=== PATIENT | female | born 1965 | race Caucasian/White ===

== ENCOUNTER 2020-05-30 14:51 | Outpatient (REF) | payer OTHER, SELFPAY | END 2020-05-30 14:52 | disposition home or self-care (01) | LOC: HO.LAB 14:51 | PROVIDERS: Visit Provider Internal Medicine | DX: Z20.828 Contact with and (suspected) exposure to other viral communicable diseases (principal) | CPT/HCPCS: C9803; U0003 ==

== ENCOUNTER 2020-06-22 08:20 | Outpatient (REF) | payer OTHER, SELFPAY | END 2020-06-22 08:21 | disposition home or self-care (01) | LOC: HO.LAB 08:20 | PROVIDERS: Visit Provider Internal Medicine | DX: Z20.822 Contact with and (suspected) exposure to COVID-19 (principal) | CPT/HCPCS: 36415; C9803; U0003 ==

== ENCOUNTER 2020-07-17 09:38 | Outpatient (REF) | payer OTHER, SELFPAY | END 2020-07-17 09:39 | disposition home or self-care (01) | LOC: HO.LAB 09:38 | PROVIDERS: Visit Provider Internal Medicine | DX: Z20.822 Contact with and (suspected) exposure to COVID-19 (principal) | CPT/HCPCS: 36415; C9803; U0003; U0005 ==

== ENCOUNTER 2021-02-08 08:23 | Outpatient (REF) | payer OTHER, SELFPAY ==
--- NOTE | ~2021-02-08 | MM_ITS ---
EXAMINATION: MM SCREENING DIGITAL BREAST TOMOSYNTHESIS, BILATERAL CLINICAL INFORMATION: Screening. Asymptomatic. The lifetime risk of breast cancer based on the Tyrer-Cuzick Model is 4%. COMPARISON: Outside mammography: 05/16/2019, 04/29/2019 ([facility]). TECHNIQUE: Digital breast tomosynthesis is performed in both the craniocaudal and mediolateral oblique views along with computer-aided detection (CAD). Synthesized 2D images are generated from the tomosynthesis. FINDINGS: The breasts are almost entirely fatty (ACR BI-RADS breast composition Category a). Background stromal markings are stable. There is no interval mass or architectural abnormality or developing density. Again, there are some vascular calcifications. The axilla and skin contours are unremarkable.No significant changes from prior outside exams. MM/MM tomosynthesis screening BI IMPRESSION: No mammographic evidence of malignancy. ASSESSMENT: BI-RADS 2: Benign RECOMMENDATION: Routine annual mammography screening. This patient's information was entered into a reminder system with a target due date for their next mammogram.
== END 2021-02-08 08:24 | disposition home or self-care (01) ==
LOC: HO.MAMMO 08:23
PROVIDERS: PCP Internal Medicine; Visit Provider Internal Medicine
DX: Z12.31 Encounter for screening mammogram for malignant neoplasm of breast (principal)
CPT/HCPCS: 77063; 77067

== ENCOUNTER 2021-03-15 09:04 | Outpatient (REF) | payer OTHER, SELFPAY ==
[2021-03-15 09:30] LABS: MANUAL DIFF FLAG NO
[2021-03-15 09:58] LABS: Basophils Percent Auto 0.5 % (0-2); Eosinophils Absolute Auto 0.2 X10*3/uL (0.0-0.4); Eosinophils Percent Auto 2.6 % (0-4); Hematocrit 40.1 % (37-47); Imm Gran Abs Auto 0.01 X10*3/uL (0.00-0.03); Imm Gran Pct Auto 0.2 % (0.0-0.4); Lymphocytes Absolute Auto 1.6 X10*3/uL (1.2-4.9); Lymphocytes Percent Auto 28.2 % (20-40); Mean Corpuscular HGB Conc 32.4 g/dl (31.0-35.0); Mean Corpuscular Hemoglobin 29.3 pg (27.0-33.0); Mean Corpuscular Volume 90.5 fL (80-98); Mean Platelet Volume 9.2 fL (9.4-12.3); Monocytes Absolute Auto 0.5 X10*3/uL (0.1-1.2); Monocytes Percent Auto 8.1 % (2-11); Neutrophils Absolute Auto 3.4 X10*3/uL (2.0-8.3); Neutrophils Percent Auto 60.4 % (45-73); Platelet Count 319 X10*3/uL (160-400); Red Blood Count 4.43 X10*6/uL (4.20-5.50); White Blood Count 5.7 X10*3/uL (4.8-10.8)
[2021-03-15 10:19] LABS: Alanine Aminotransferase 18 U/L (0-31); Albumin Level 4.3 g/dL (3.5-5.0); Alkaline Phosphatase 104 U/L (39-117); Anion Gap 13 (12-20); Aspartate Amino Transferase 16 U/L (5-31); Bilirubin Total 0.2 mg/dL (0.0-1.0); Blood Urea Nitrogen 15 mg/dL (9-16); Calcium 9.7 mg/dL (8.4-10.2); Carbon Dioxide 25 mmol/L (22-29); Chloride 107 mmol/L (96-108); Cholesterol 221 mg/dL; Estimated Glomerular Filt Rate > 60; Glucose Fasting 100 mg/dL (60-99); HDL Cholesterol 44 mg/dL; LDL Cholesterol Calculated 127 mg/dl; Potassium 4.3 mmol/L (3.3-5.1); Sodium 141 mmol/L (135-145); Total Protein 7.4 g/dL (6.5-8.0); Triglycerides 253 mg/dL
[2021-03-15 10:44] LABS: Thyroid Stimulating Hormone 3.75 uIU/mL (0.32-4.0)
[2021-03-18 21:56] LABS: Thyroglobulin Antibodies <1 IU/mL (< or = 1); Thyroid Peroxidase Antibodies 3 IU/mL (<9)
== END 2021-03-15 09:05 | disposition home or self-care (01) ==
LOC: HO.LAB 09:04
PROVIDERS: PCP Internal Medicine; Visit Provider Internal Medicine
DX: D64.9 Anemia, unspecified (principal); M06.9 Rheumatoid arthritis, unspecified; E66.9 Obesity, unspecified; E03.9 Hypothyroidism, unspecified
CPT/HCPCS: 36415; 80053; 80061; 84443; 85025; 86376; 86800

== ENCOUNTER 2021-07-31 07:57 | Outpatient (REF) | payer OTHER, SELFPAY ==
[2021-07-31 09:09] LABS: Alanine Aminotransferase 18 U/L (0-31); Albumin Level 3.9 g/dL (3.5-5.0); Alkaline Phosphatase 95 U/L (39-117); Anion Gap 12 (12-20); Aspartate Amino Transferase 19 U/L (5-31); Bilirubin Total 0.4 mg/dL (0.0-1.0); Blood Urea Nitrogen 9 mg/dL (9-16); Calcium 9.7 mg/dL (8.4-10.2); Carbon Dioxide 29 mmol/L (22-29); Chloride 103 mmol/L (96-108); Cholesterol 228 mg/dL; Estimated Glomerular Filt Rate > 60; Glucose Fasting 94 mg/dL (60-99); HDL Cholesterol 45 mg/dL; LDL Cholesterol Calculated 121 mg/dl; Potassium 4.9 mmol/L (3.3-5.1); Sodium 139 mmol/L (135-145); Triglycerides 310 mg/dL
[2021-07-31 09:21] LABS: Thyroid Stimulating Hormone 2.75 uIU/mL (0.32-4.0)
[2021-08-04 15:17] LABS: Vitamin D 25-OH, D2 <4 ng/mL; Vitamin D 25-OH, D3 15 ng/mL; Vitamin D 25-OH, Total 15 ng/mL (30-100)
== END 2021-07-31 07:58 | disposition home or self-care (01) ==
LOC: HO.LAB 07:57
PROVIDERS: PCP Nurse Practitioner Family; Visit Provider Internal Medicine
DX: E03.9 Hypothyroidism, unspecified (principal); E55.9 Vitamin D deficiency, unspecified; E78.2 Mixed hyperlipidemia
CPT/HCPCS: 36415; 80053; 80061; 82306; 84443

== ENCOUNTER → 2021-09-27 09:05 | Outpatient (BNVA) | payer OTHER, SELFPAY | PROVIDERS: PCP Internal Medicine; Referring Provider Internal Medicine; Visit Provider Nurse Practitioner | DX: K59.04 Chronic idiopathic constipation (principal) | CPT/HCPCS: 99202 ==

== ENCOUNTER → 2021-10-29 11:22 | Outpatient (BNVA) | payer OTHER, SELFPAY | PROVIDERS: PCP Internal Medicine; Referring Provider Internal Medicine; Visit Provider Nurse Practitioner | DX: K59.04 Chronic idiopathic constipation (principal); Z79.899 Other long term (current) drug therapy | CPT/HCPCS: 99212 ==

== ENCOUNTER → 2021-11-12 09:33 | Outpatient (BNVA) | payer OTHER, SELFPAY | PROVIDERS: PCP Internal Medicine; Visit Provider Nurse Practitioner | DX: K59.04 Chronic idiopathic constipation (principal); K21.9 Gastro-esophageal reflux disease without esophagitis | CPT/HCPCS: 99212 ==

== ENCOUNTER → 2021-11-29 09:14 | Outpatient (BNVA) | payer OTHER, SELFPAY | PROVIDERS: PCP Internal Medicine; Referring Provider Internal Medicine; Visit Provider Nurse Practitioner | DX: K59.04 Chronic idiopathic constipation (principal); K21.9 Gastro-esophageal reflux disease without esophagitis | CPT/HCPCS: 99212 ==

== ENCOUNTER → 2022-01-08 09:28 | Outpatient (BNVA) | payer OTHER, SELFPAY | PROVIDERS: PCP Internal Medicine; Visit Provider Nurse Practitioner | DX: K59.04 Chronic idiopathic constipation (principal); K21.9 Gastro-esophageal reflux disease without esophagitis | CPT/HCPCS: 99212 ==

== ENCOUNTER 2022-02-13 07:57 | Outpatient (REF) | payer OTHER, SELFPAY ==
--- NOTE | ~2022-02-13 | MM_ITS ---
EXAMINATION: MM SCREENING DIGITAL BREAST TOMOSYNTHESIS, BILATERAL CLINICAL INFORMATION: Screening. Asymptomatic. The lifetime risk of breast cancer based on the Tyrer-Cuzick Model is 4%. COMPARISON: Mammography: 02/08/2021; outside mammography 05/16/2019, 04/29/2019 ([facility]) TECHNIQUE: Digital breast tomosynthesis is performed in both the craniocaudal and mediolateral oblique views along with computer-aided detection (CAD). Synthesized 2D images are generated from the tomosynthesis. FINDINGS: The breasts are almost entirely fatty (ACR BI-RADS breast composition Category a). There are no significant masses, abnormal calcifications, or other abnormalities. Parenchymal pattern is similar to prior studies. There is no developing density or architectural abnormality. The axilla and skin contours are unremarkable. No significant changes. MM/MM tomosynthesis screening BI IMPRESSION: No mammographic evidence of malignancy. ASSESSMENT: BI-RADS 1: Negative RECOMMENDATION: Routine annual mammography screening. This patient's information was entered into a reminder system with a target due date for their next mammogram.
== END 2022-02-13 07:58 | disposition home or self-care (01) ==
LOC: HO.MAMMO 07:57
PROVIDERS: PCP Internal Medicine; Visit Provider Internal Medicine
DX: Z12.31 Encounter for screening mammogram for malignant neoplasm of breast (principal)
CPT/HCPCS: 77063; 77067

== ENCOUNTER 2022-05-19 08:13 | Outpatient (REF) | payer OTHER, SELFPAY ==
[2022-05-19 09:19] LABS: Alanine Aminotransferase 15 U/L (0-31); Albumin Level 4.2 g/dL (3.5-5.0); Alkaline Phosphatase 98 U/L (39-117); Anion Gap 12 (12-20); Aspartate Amino Transferase 15 U/L (5-31); Bilirubin Total 0.3 mg/dL (0.0-1.0); Blood Urea Nitrogen 16 mg/dL (9-16); Calcium 9.3 mg/dL (8.4-10.2); Carbon Dioxide 24 mmol/L (22-29); Chloride 109 mmol/L (96-108); Cholesterol 194 mg/dL; Estimated Glomerular Filt Rate > 60; Glucose Fasting 100 mg/dL (60-99); HDL Cholesterol 46 mg/dL; LDL Cholesterol Calculated 122 mg/dl; Sodium 141 mmol/L (135-145); Total Protein 7.1 g/dL (6.5-8.0); Triglycerides 130 mg/dL; Vitamin D 25-OH Total 39.5 ng/mL (>30)
[2022-05-24 13:24] LABS: Vitamin D 25-OH, D2 <4 ng/mL; Vitamin D 25-OH, D3 33 ng/mL; Vitamin D 25-OH, Total 33 ng/mL (30-100)
== END 2022-05-19 08:14 | disposition home or self-care (01) ==
LOC: HO.LAB 08:13
PROVIDERS: PCP Internal Medicine; Visit Provider Internal Medicine
DX: E55.9 Vitamin D deficiency, unspecified (principal); E03.9 Hypothyroidism, unspecified; E78.5 Hyperlipidemia, unspecified; K21.9 Gastro-esophageal reflux disease without esophagitis
CPT/HCPCS: 36415; 80053; 80061; 82306; 84443

== ENCOUNTER 2022-05-23 09:29 | Outpatient (REF) | payer OTHER, SELFPAY ==
--- NOTE | ~2022-05-23 | XR_ITS ---
EXAMINATION: XR WRIST, LEFT CLINICAL INFORMATION: Pain. COMPARISON: None TECHNIQUE: Four views of the left wrist. FINDINGS: No acute fracture or dislocation is evident. Joint spaces are maintained. There is mild spurring about the 1st carpometacarpal joint. There is some mild spurring about the triscaphe joint. There is a sclerotic region within the neck of the scaphoid which may be related to bone island or healed injury. There appears be soft tissue calcification versus artifact about the radial aspect of the distal right radius. XR/XR wrist LT 2V IMPRESSION: Mild degenerative change as described. No acute fracture or dislocation evident.
--- NOTE | ~2022-05-23 | XR_ITS ---
EXAMINATION: XR LUMBOSACRAL SPINE CLINICAL INFORMATION: Low back pain. COMPARISON: None. TECHNIQUE: 3 views of the lumbosacral spine. FINDINGS: There are 5 [id number] lumbar vertebrae. No acute fracture, spondylolisthesis, or spondylolysis is identified. The disc spaces are maintained. Pedicles appear intact. Sacroiliac joints unremarkable. Mildly increased sclerosis about the L5-S1 facet joints seen. XR/XR lumbar spine 2-3V IMPRESSION: No significant lumbar spine abnormality appreciated. No acute fracture, spinal listhesis, or spondylolysis. Mild facet arthropathy L5-S1.
== END 2022-05-23 09:30 | disposition home or self-care (01) ==
LOC: HO.XRAY 09:29
PROVIDERS: PCP Internal Medicine; Visit Provider Internal Medicine
DX: M25.532 Pain in left wrist (principal); M54.50 Low back pain, unspecified
CPT/HCPCS: 72100; 73100

== ENCOUNTER 2022-07-02 11:00 | Outpatient (RCR) | payer OTHER, SELFPAY ==
--- NOTE | 2022-06-18 11:59 | MHC.PT.EP ---
[facility] [place] Office [place] Office [place] Office [address] Dimas Tucker [address] [phone] F: [phone] F: [phone] F: [phone] F: [phone] Physical Therapy Plan of Care Date of Evaluation: Date of Surgery: n/a Diagnosis: low back pain Assessment: Patient is a 56 year old female presenting to PT with complaints of pain in her low back. Pt reports onset of pain began 1-2 years ago due to insidious onset. She presents today with impairments in pain, ROM, core strength, posture, hip strength. Pt's current occupation is none but she cares for her grandson, with baseline physical activities including sitting, lifting, ADLs. 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 Clinical presentation today is most consistent with signs and sx associated with chronic low back pain and pt will benefit from skilled PT to address the following problems and impairments noted upon evaluation: pain, ROM, core strength, posture, hip strength. These problems limit the patient with the following functional activities: sitting, lifting, ADLs. The prescribed treatment plan of care is medically necessary. Co-morbidities of rheumatoid arthritis were identified and taken into considerations of plan of care. Pt was educated on HEP, role of PT, prognosis, POC. Frequency and Duration: The patient will be seen 1 x week x 5 seeks Short Term Goals: Pt will demonstrate improved pain at rest to <3/10 in 3 weeks Pt will demonstrate improved hip strength by 1/3 grade in 3 weeks for improved lumbopelvic stability. Pt will demonstrate ability to perform PPT with min to no cues in 3 weeks for improved core strength. Product Picker Goals: Pt will demonstrate improved Eduardo score by 10% in 5 weeks for improved functional mobility. Pt will demonstrate ability to sit with min to no pain in 5 weeks for return to PLOF. Pt will demonstrate ability to lift with min to no pain in 5 weeks for improved tolerance to ADLs. Treatment Plan: Modalities to reduce pain, spasms and effusion. Manual therapy to restore motion and function. Therapeutic exercise to improve strength and flexibility. Neuromuscular re-education for posture and balance. Therapeutic activities to return to functional activities of daily living. Electronically signed by: Inga Hoff, PT, DPT, ATC Please sign and return to therapist. Thank you for your referral.
--- NOTE | 2022-08-15 08:15 | MHC.PT.DC ---
[facility] [place] Office [place] Office [place] Office [address] [phone] F: [phone] F: [phone] F: [phone] F: [phone] Physical Therapy Discharge Report Diagnosis: low back pain Date of Surgery: n/a Date of Evaluation: 06/18/22 Date of Discharge: 08/15/22 Treatments to Date: 3 Cancellations to Date: 3 No Shows to Date: 1 Discharge Status: Visit Non-compliance Discharge Summary: Pt has not attended PT in >30 days. She also has 3 cancels and a no show since start of care. Pt to be d/c at this time. Electronically signed by: Inga Hoff, PT, DPT, ATC Please sign and return to therapist. Thank you for your referral.
== END 2022-08-15 08:15 | disposition home or self-care (01) ==
LOC: HO.PTCHIC 11:00
PROVIDERS: PCP Internal Medicine; Visit Provider Internal Medicine
DX: M54.50 Low back pain, unspecified (principal)
CPT/HCPCS: 97110; 97140; 97161

== ENCOUNTER → 2022-07-09 08:37 | Outpatient (BNVA) | payer OTHER, SELFPAY | PROVIDERS: PCP Internal Medicine; Visit Provider Nurse Practitioner | DX: K59.04 Chronic idiopathic constipation (principal); K21.9 Gastro-esophageal reflux disease without esophagitis; Z98.890 Other specified postprocedural states | CPT/HCPCS: 99212 ==

== ENCOUNTER 2023-01-21 08:21 | Outpatient (AMB) | payer OTHER, SELFPAY ==
--- NOTE | 2023-01-21 08:23 | MHC.OFFVIS ---
Intake Vital Signs 01/21/23 08:28 Height 4 ft 11 in Weight 154 lb 5.177 oz BMI 31.2 BP 126/75 Blood Pressure Location Lt brachial Position Sitting Pulse 87 Intake Visit Reasons: 6 month follow up Intake Note: Gayle presents in the office as a 6 month follow up.. CC: No concerns today - since last visit she has had a wrist surgery. Allergies polyethylene glycol 3350 [From Colyte] Allergy (Severe, Verified 01/21/23 08:29) redness of skin, itch potassium chloride [From Colyte] Allergy (Severe, Verified 01/21/23 08:29) redness of skin, itch sodium bicarbonate [From Colyte] Allergy (Severe, Verified 01/21/23 08:29) redness of skin, itch sodium chloride [From Colyte] Allergy (Severe, Verified 01/21/23 08:29) redness of skin, itch sodium sulfate [From Colyte] Allergy (Severe, Verified 01/21/23 08:29) redness of skin, itch diclofenac Adverse Reaction (Intermediate, Verified 01/21/23 08:29) gastrointestinal bleeding leflunomide Adverse Reaction (Intermediate, Verified 01/21/23 08:29) skin spots HPI 6 month follow up HPI Details Assessment & Plan (1) Chronic idiopathic constipation: ?Code(s): K59.04 - Chronic idiopathic constipation ?Plan: [place] [facility] GI notes show she had a colonoscopy in 2016 with a 10 year repeat. In 2017 she had an EGD. Apparently, she had a sigmoidectomy r/t severe CIC and a anatomic abnormality in this area. Her anastomosis was in good order per the last GI record report. She continues to do well on her LInzess and senna (not bisacodyl as this gave her diarrhea). She also has good control of her GERD with omeprazole. ROV 6 mos. (nice glasses, black and white) (2) GERD (gastroesophageal reflux disease): ?Code(s): K21.9 - Gastro-esophageal reflux disease without esophagitis (3) H/O esophagogastroduodenoscopy: ?Comment: 2017 [facility] ?Code(s): Z98.890 - Other specified postprocedural states ? ? ? Medications: Refilled linaclotide (Linze ss) 290 mcg? PO QAM 30 days 30 caps 6RF E K59.04 - Chronic i diopathic constipa tion ? sennosides (senna) 34.4 mg (4 x 8.6 m g) PO BEDTIME PRN 60 tabs 6RF consti pation ? ? omeprazole 20 mg? PO DAILY 90 days 90 caps 1RF E K21.9 - Gastro-eso phageal reflux dis ease without esoph agitis ? TODAY'S VISIT [place] #declines With the LInzess 290 she is having liquid diarrhea with fecal in continence about twice a week. She is not taking the senna regularly, which is good. I explain that we likely need to reduce the does of the Linzess to 145mcg and she can add senna nightly if this is not working on its own. She continues on omeprazole 20mg with good GERD control. ROV 4 weeks. [facility] Medical History Bipolar 1 disorder Depression with anxiety GERD (gastroesophageal reflux disease) Hypothyroid Mixed hyperlipidemia Obese Physical exam Rheumatoid arthritis Skin lesion Surgical History H/O colonoscopy H/O esophagogastroduodenoscopy History of History of cholecystectomy History of intestinal surgery S/P SALOME-BSO Family History Mother Pre-diabetes Asthma Father Lung cancer Family/Other Mental health disorder Social History Housing: Apartment Alcohol intake: current Alcohol intake frequency: holidays/special occasions only Alcohol type: beer, wine and hard liquor Patient Tobacco Use Status: Former Tobacco user Tobacco use type: Cigarette e-Cigarette/Vaping Use: Never Used Second Hand Smoke Exposure: No service: No Current occupational status: disabled Cognitive needs: No Hearing needs: No Vision needs: Yes Review of Systems Const Denies fatigue, Denies fever(s), Denies night sweats, Denies poor appetite and Denies weight loss Eyes Details: glasses Reports requires corrective lenses ENT Reports Normal hearing present, Denies dental pain, Denies dysphagia, Denies hearing loss, Denies mouth pain, Denies odynophagia, Denies throat swelling, Denies tongue swelling and Reports other (Dentition adequate) Card Reports no additional complaints Resp Reports no additional complaints GI Denies abdominal pain, Denies melena, Denies bloating, Denies hematochezia, Reports constipation, Denies GI cramping, Denies dysphagia, Denies excessive flatus, Denies early satiety, Reports heartburn, Reports diarrhea, Denies nausea, Denies odynophagia, Denies vomiting and Denies hematemesis Skin/Breast Denies pruritus, Denies lesions, Denies rash and Denies jaundice Neuro Reports Normal hearing present and Denies Abnormal speech present Endo Denies fatigue Aller/Immun Denies throat swelling and Denies tongue swelling Physical Exam Const General: cooperative, no acute distress, well developed and well groomed Nutritional Appearance: well nourished and obese Orientation/consciousness: oriented to person, oriented to place and oriented to time Limitations: language barrier (bot does well if you speak slowly and 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 fairing 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) HEENT Head: Yes normocephalic and Yes atraumatic Eyes General: appearance normal, both eyes and all related structures Pupils: Equal, round and reactive pupils present Neck Neck: Yes normal visual inspection and Yes no lymphadenopathy Thyroid: Thyroid normal Resp Effort & Inspection: normal respiratory effort and able to speak in complete sentences Auscultation: clear to auscultation bilaterally Cardio Rate: regular rate Rhythm: regular rhythm Heart sounds: Normal, physiologic split S2 sound present Peripheral pulses: radial pulses present and posterior tibial pulses present GI Inspection: No distended, Yes Abdominal panniculus present and Yes obesity Palpation (GI): Soft to palpation, nontender, no guarding, not rigid and No hepatosplenomegaly present Percussion: Yes normal to percussion Auscultation: normal bowel sounds Rectal Exam - Female: deferred Skin General skin exam: no rashes or lesions noted, turgor normal, skin not dry, no jaundice, No spider nevi and no striae Rashes: no rashes Nails: normal Neuro General: oriented to person, oriented to place and oriented to time Cranial nerves: Yes Equal, round and reactive pupils present and Yes Normal hearing present Speech: No Abnormal speech present Extrem General: Yes normal to inspection, No clubbing, No cyanosis and No edema Psych Appearance: grossly normal and well kempt Mental Status: mental status grossly normal Speech and movement: Normal speech and movement present Affect: normal affect Attitude: cooperative Thought process: Normal thought process present and not confabulating Thought content: Normal thought content present Insight: Fair insight present (Psych) Judgement: Fair judgement present (Psych) Assessment & Plan Assessment & Plan (1) Chronic idiopathic constipation: Code(s): K59.04 - Chronic idiopathic constipation Plan: [place] #declines With the LInzess 290 she is having liquid diarrhea with fecal in continence about twice a week. She is not taking the senna regularly, which is good. I explain that we likely need to reduce the does of the Linzess to 145mcg and she can add senna nightly if this is not working on its own. She continues on omeprazole 20mg with good GERD control. ROV 4 weeks. (2) GERD (gastroesophageal reflux disease): Code(s): K21.9 - Gastro-esophageal reflux disease without esophagitis Medications: New linaclotide (Linzess) 145 mcg PO QAM 30 caps 6RF K59.04 - Chronic idiopathic constipation On Hold linaclotide (Linzess) Hold Comment: Doctor's Order 290 mcg PO QAM 30 days 30 caps 6RF K59.04 - Chronic idiopathic constipation Coding Level of Care Code Est Pt Level 3 (11508) Diagnoses Chronic idiopathic constipation K59.04 GERD (gastroesophageal reflux disease) K21.9
[2023-01-21 08:28] VITALS: BP 126/75; PULSE 87; BMI 31.2
== END 2023-01-21 08:45 | disposition home or self-care (01) ==
PROVIDERS: PCP Internal Medicine; Visit Provider Nurse Practitioner
DX: K59.04 Chronic idiopathic constipation (principal); K21.9 Gastro-esophageal reflux disease without esophagitis
CPT/HCPCS: 99213

== ENCOUNTER → 2023-01-21 08:21 | Outpatient (BNVA) | payer OTHER, SELFPAY | PROVIDERS: PCP Internal Medicine; Visit Provider Nurse Practitioner | DX: K59.04 Chronic idiopathic constipation (principal); K21.9 Gastro-esophageal reflux disease without esophagitis | CPT/HCPCS: 99212 ==

== ENCOUNTER 2023-02-18 09:00 | Outpatient (AMB) | payer OTHER, SELFPAY ==
--- NOTE | 2023-02-18 09:02 | A.OFFVIS_ITS ---
Intake Vital Signs 02/18/23 09:05 Height 4 ft 11 in Weight 153 lb 0.013 oz BMI 30.9 BP 137/84 Blood Pressure Location Lt brachial Position Sitting Pulse 81 Intake Visit Reasons: 4 week follow up Intake Note: Gayle presents in the office as a 4 weeks follow up. CC: Patient reports doing well and denies having any new GI concerns today. Poultry Process Worker Required: No Poultry Process Worker Name: Pt declined interpreter and translator Accompanied by: Self / Same As Patient Allergies polyethylene glycol 3350 [From Colyte] Allergy (Severe, Verified 02/18/23 09:07) redness of skin, itch potassium chloride [From Colyte] Allergy (Severe, Verified 02/18/23 09:07) redness of skin, itch sodium bicarbonate [From Colyte] Allergy (Severe, Verified 02/18/23 09:07) redness of skin, itch sodium chloride [From Colyte] Allergy (Severe, Verified 02/18/23 09:07) redness of skin, itch sodium sulfate [From Colyte] Allergy (Severe, Verified 02/18/23 09:07) redness of skin, itch diclofenac Adverse Reaction (Intermediate, Verified 02/18/23 09:07) gastrointestinal bleeding leflunomide Adverse Reaction (Intermediate, Verified 02/18/23 09:07) skin spots HPI 4 week follow up HPI Details Assessment & Plan (1) Chronic idiopathic constipation: Code(s): K59.04 - Chronic idiopathic constipation Plan: Citizen Of [place] #declines With the LInzess 290 she is having liquid diarrhea with fecal in continence about twice a week. She is not taking the senna regularly, which is good. I explain that we likely need to reduce the does of the Linzess to 145mcg and she can add senna nightly if this is not working on its own. She continues on omeprazole 20mg with good GERD control. ROV 4 weeks. (2) GERD (gastroesophageal reflux diseas e): Code(s): K21.9 - Gastro-esophageal reflux disease without esophagitis Medications: New linaclotide (Linze ss) 145 mcg PO QAM 30 caps 6RF K59.04 - Chronic i diopathic constipa tion On Hold linaclotide (Linze ss) Hold Commen t: Doctor's Order 290 mcg PO QAM 30 days 30 caps 6RF K59.04 - Chronic i diopathic constipa tion TODAY'S VISIT Citizen Of [place] #declines She is doing well on the 145mcg LInzess and she uses senna intermittently. This has resolved her diarrhea. She is out of her omeprazole and we will refill this. She [place] a [place] in [place] [facility] [place] will be due for repeat in 2025. She is satisfied the GI regimen for now and agreeable to a 6 month follow-up. ROV 6 mos. PFS Medical History Physical exam Skin lesion GERD (gastroesophageal reflux disease) Mixed hyperlipidemia Obese Bipolar 1 disorder Rheumatoid arthritis Depression with anxiety Hypothyroid Surgical History H/O esophagogastroduodenoscopy H/O colonoscopy S/P SALOME-BSO History of cholecystectomy History of History of intestinal surgery Family History Mother Pre-diabetes Asthma Father Lung cancer Family/Other Mental health disorder Social History Housing: Apartment Alcohol intake: current Alcohol intake frequency: holidays/special occasions only Alcohol type: beer, wine and hard liquor Patient Tobacco Use Status: Former Tobacco user Tobacco use type: Cigarette e-Cigarette/Vaping Use: Never Used Second Hand Smoke Exposure: No service: No Current occupational status: disabled Cognitive needs: No Hearing needs: No Vision needs: Yes Review of Systems Const Denies fatigue, Denies fever(s), Denies night sweats, Denies poor appetite and Denies weight loss Eyes Details: glasses Reports requires corrective lenses ENT Reports Normal hearing present, Denies dental pain, Denies dysphagia, Denies hearing loss, Denies mouth pain, Denies odynophagia, Denies throat swelling, Denies tongue swelling and Reports other (Dentition adequate) Card Reports no additional complaints Resp Reports no additional complaints GI Denies abdominal pain, Denies melena, Denies bloating, Denies hematochezia, Rep orts constipation, Denies GI cramping, Denies dysphagia, Denies excessive flatus, Denies early satiety, Reports heartburn, Denies diarrhea, Denies nausea, Denies odynophagia, Denies vomiting and Denies hematemesis Skin/Breast Denies pruritus, Denies lesions, Denies rash and Denies jaundice Neuro Reports Normal hearing present and Denies Abnormal speech present Endo Denies fatigue Aller/Immun Denies throat swelling and Denies tongue swelling Physical Exam Vital Signs: Last Vital Signs Pulse 81 02/18/23 09:05 BP 137/84 02/18/23 09:05 BMI result Body Mass Index 30.9 Const General: cooperative, no acute distress, well developed and well groomed Nutritional Appearance: well nourished and obese Orientation/consciousness: oriented to person, oriented to place and oriented to time Limitations: No language barrier HEENT Head: Yes normocephalic and Yes atraumatic Eyes General: appearance normal, both eyes and all related structures Pupils: Equal, round and reactive pupils present Neck Neck: Yes normal visual inspection and Yes no lymphadenopathy Thyroid: Thyroid normal Resp Effort & Inspection: normal respiratory effort and able to speak in complete sentences Auscultation: clear to auscultation bilaterally Cardio Rate: regular rate Rhythm: regular rhythm Heart sounds: Normal, physiologic split S2 sound present Peripheral pulses: radial pulses present and posterior tibial pulses present GI Inspection: No distended, No Abdominal panniculus present and Yes obesity Palpation (GI): Soft to palpation, nontender, no guarding, not rigid and No hepatosplenomegaly present Percussion: Yes normal to percussion Auscultation: normal bowel sounds Rectal Exam - Female: deferred Skin General skin exam: no rashes or lesions noted, turgor normal, skin not dry, no jaundice, No spider nevi and no striae Rashes: no rashes Nails: normal Neuro General: oriented to person, oriented to place and oriented to time Cranial nerves: Yes Equal, round and reactive pupils present and Yes Normal hearing present Speech: No Abnormal speech present Extrem General: Yes normal to inspection, No clubbing, No cyanosis and No edema Psych Appearance: grossly normal and well kempt Mental Status: mental status grossly normal Speech and movement: Normal speech and movement present Affect: normal affect Attitude: cooperative Thought process: Normal thought process present and not confabulating Thought content: Normal thought content present Insight: Fair insight present (Psych) Judgement: Fair judgement present (Psych) Assessment & Plan Assessment & Plan (1) Chronic idiopathic constipation: Code(s): K59.04 - Chronic idiopathic constipation Plan: Citizen Of [place] #declines She is doing well on the 145mcg LInzess and she uses senna intermittently. This has resolved her diarrhea. She is out of her omeprazole and we will refill this. She had a [place] in 2015 [place] [facility] and will be due for repeat in 2025. She is satisfied the GI regimen for now and agreeable to a 6 month follow-up. ROV 6 mos. (2) GERD (gastroesophageal reflux disease): Code(s): K21.9 - Gastro-esophageal reflux disease without esophagitis Medications: Refilled omeprazole 20 mg PO DAILY 90 days 90 caps 1RF K21.9 - Gastro-esophageal reflux disease without esophagitis sennosides (senna) 34.4 mg (4 x 8.6 mg) PO BEDTIME 90 days PRN 360 tabs 3RF constipation linaclotide (Linzess) 145 mcg PO QAM 30 caps 6RF K59.04 - Chronic idiopathic constipation Discontinued linaclotide (Linzess) Discontinued Reason: Doctor's Order 290 mcg PO QAM 30 days 30 caps 6RF K59.04 - Chronic idiopathic constipation Coding Level of Care Code Est Pt Level 3 (12332) Diagnoses Chronic idiopathic constipation K59.04 GERD (gastroesophageal reflux disease) K21.9
[2023-02-18 09:05] VITALS: BP 137/84; PULSE 81; BMI 30.9
== END 2023-02-18 09:20 | disposition home or self-care (01) ==
PROVIDERS: PCP Internal Medicine; Visit Provider Nurse Practitioner
DX: K59.04 Chronic idiopathic constipation (principal); K21.9 Gastro-esophageal reflux disease without esophagitis
CPT/HCPCS: 99213

== ENCOUNTER → 2023-02-18 09:00 | Outpatient (BNVA) | payer OTHER, SELFPAY | PROVIDERS: PCP Internal Medicine; Visit Provider Nurse Practitioner | DX: K59.04 Chronic idiopathic constipation (principal); K21.9 Gastro-esophageal reflux disease without esophagitis | CPT/HCPCS: 99212 ==

== ENCOUNTER 2023-03-19 09:02 | Outpatient (AMB) | payer OTHER, SELFPAY ==
[2023-03-19 09:11] VITALS: BP 130/82; PULSE 96; O2SAT 97; BMI 30.3
--- NOTE | 2023-03-19 09:11 | MHC.PC.OV ---
Vital Signs 03/19/23 09:11 Height 4 ft 11 in Weight 150 lb BMI 30.3 BP 130/82 Blood Pressure Location Lt brachial Position Sitting Pulse 96 Pulse Source Pulse Oximeter Pulse Oximetry (%) 97 Oxygen Delivery Method Room Air Intake Visit Reasons: bp, constipation, thyroid Intake Note: Patient here for a follow up BP, constipation, thyroid Dye Jig Operator Required: No Accompanied by: Self / Same As Patient Allergies polyethylene glycol 3350 [From Colyte] Allergy (Severe, Verified 03/19/23 09:19) redness of skin, itch potassium chloride [From Colyte] Allergy (Severe, Verified 03/19/23 09:19) redness of skin, itch sodium bicarbonate [From Colyte] Allergy (Severe, Verified 03/19/23 09:19) redness of skin, itch sodium chloride [From Colyte] Allergy (Severe, Verified 03/19/23 09:19) redness of skin, itch sodium sulfate [From Colyte] Allergy (Severe, Verified 03/19/23 09:19) redness of skin, itch diclofenac Adverse Reaction (Intermediate, Verified 03/19/23 09:19) gastrointestinal bleeding leflunomide Adverse Reaction (Intermediate, Verified 03/19/23 09:19) skin spots Medication List - Last Reconciled 03/19/23 by Kerry Chu MD bupropion HCl 300 mg PO DAILY escitalopram oxalate 20 mg PO DAILY fenofibrate 54 mg PO DAILY 90 days lamotrigine 200 mg PO BEDTIME lamotrigine 50 mg PO QAM levothyroxine 75 mcg PO QAM 90 days linaclotide (Linzess) 145 mcg PO QAM lorazepam 1 mg PO BEDTIME PRN omeprazole 20 mg PO DAILY 90 days quetiapine 50 mg PO BEDTIME quetiapine 100 mg PO BEDTIME rosuvastatin 20 mg PO DAILY 90 days sennosides (senna) 34.4 mg (4 x 8.6 mg) PO BEDTIME PRN 90 days sumatriptan succinate 25 mg PO Q2-4H PRN 30 days Tobacco use date assessed: 08/20/22 Dental Screening Dental Screen Date: 03/19/23 Did you have a dental visit in the last 12 months?: No Did you have a dental problem in the last 6 months where you did not have access to dental care?: No Was dental information given to patient?: Patient has dentist HPI HPI Comments History of Present Illness Details This is a 57-year-old female with hypothyroidism, mixed hyperlipidemia, bipolar disorder and migraines that comes today for follow-up on her conditions. Last TSH was normal and this will be repeated today. Cholesterol and triglycerides stable with medications. Bipolar disorder is follow by Psychiatry and has been well controlled with lamotrigine. She has noticed that last month migraines have been more frequently and bilateral in frontal area. Usually sumatriptan relieves the migraine. I will refer her to Neurology. She declines any neurological deficit. Complains of some occasional memory loss. [facility] Medical History (Updated 03/19/23 @ 09:27 by Kerry Chu MD) Physical exam Skin lesion GERD (gastroesophageal reflux disease) Mixed hyperlipidemia Obese Bipolar 1 disorder Rheumatoid arthritis Depression with anxiety Hypothyroid Surgical History History of hand surgery H/O esophagogastroduodenoscopy H/O colonoscopy S/P SALOME-BSO History of cholecystectomy History of History of intestinal surgery Family History Mother Pre-diabetes Asthma Father Lung cancer Family/Other Mental health disorder Social History Housing: Apartment Alcohol intake: current Alcohol intake frequency: holidays/special occasions only Alcohol type: beer, wine and hard liquor Patient Tobacco Use Status: Former Tobacco user Tobacco use type: Cigarette e-Cigarette/Vaping Use: Never Used Second Hand Smoke Exposure: No service: No Current occupational status: disabled Cognitive needs: No Hearing needs: No Vision needs: Yes Questionnaire Thrive Questionnaire Date Thrive assessed: 08/20/22 KRISTOPHER-7 AMB Questionnaire KRISTOPHER-7 Date RKISTOPHER - 7 assessed: 08/20/22 Source: Developed by Drs. Stephen Kimbrough, Heidi Veras, Nelson Salvador and colleagues, with an educational natalie from [employer]. Review of Systems Const All systems reviewed & are unremarkable except as noted in HPI and below Eyes Reports no additional complaints, Denies change in vision and Denies other visual disturbances Card Denies chest pain at rest, Denies chest pain with activity, Denies edema, Denies irregular heart rhythm, Denies claudication, Denies dyspnea, Denies dyspnea on exertion, Denies orthopnea, Denies paroxysmal nocturnal dyspnea and Denies slow heart rate Resp Denies cough, Denies dyspnea and Denies dyspnea on exertion GI Denies abdominal pain, Denies change in bowel habits, Denies excessive flatus, Denies nausea and Denies vomiting Denies urinary incontinence, Denies urinary hesitancy and Denies urinary urgency Musc Denies abnormal gait, Denies atrophy, Denies deformity and Denies limited range of motion Skin/Breast Denies bleeding lesions, Denies changing lesions and Denies rash Neuro Denies abnormal gait and Denies lack of coordination Physical exam (Primary Care) Vital Signs: Last Vital Signs Pulse 96 03/19/23 09:11 BP 130/82 03/19/23 09:11 Pulse Ox 97 03/19/23 09:11 Oxygen Delivery Method Room Air 03/19/23 09:11 BMI result Body Mass Index 30.3 Tobacco/Smoking Status: Tobacco use Status Tobacco use date assessed 08/20/22 03/19/23 09:15 Patient Tobacco Use Status Former Tobacco user 03/19/23 09:15 Tobacco use type Cigarette 03/19/23 09:15 e-Cigarette/Vaping Use Never Used 03/19/23 09:15 Thrive Assessment: Date of Thrive Assessment Date Thrive assessed 08/20/22 03/19/23 09:15 Eyes General: appearance normal, both eyes and all related structures Eyelids: Yes eyelids normal Conjunctivae: conjunctivae normal Neck Neck: Yes normal visual inspection and Yes supple Resp Effort & Inspection: normal respiratory effort Auscultation: clear to auscultation bilaterally Cardio Jugular venous distension: no JVD Rate: regular rate Rhythm: regular rhythm Heart sounds: S1 normal heart sound present and S2 normal heart sound present Extrem General: Yes full ROM Office Procedures Flu Questionnaire Does the patient have a severe egg allergy?: No Does the patient have severe life threatening allergies?: No Does the patient have a fever or illness today?: No Has the patient ever had Guillain-Salis[place] Syndrome?: No Has the patient ever had any past reaction to a flu shot?: No Immunizations flu vacc [id number] 6mos up(PF) 60 mcg(15 mcgx4)/0.5 mL IM syringe Performing Provider: Kerry Chu MD [facility] Administered by: TAMI Wade on 03/19/23 09:31 Dose Route Admin Location Dispensed Lot Number Expiration Date [employer] Att[employer] 0.5 mL IM Right Deltoid 0.5 mL [id number] 12/06/23 [id number] [employer] VIS Given Date VIS Provided VIS Publication Date 03/19/23 Single Vaccine 21 Eligibility Eligibility Date Funding Source Not [facility] Eligible 03/19/23 Private Assessment and Plan Assessment & Plan (1) Hypothyroid: Code(s): E03.9 - Hypothyroidism, unspecified Qualifiers: Hypothyroidism type: unspecified Qualified Code(s): E03.9 - Hypothyroidism, unspecified Plan: Continue levothyroxine. Repeat TSH today. (2) Bipolar 1 disorder: Code(s): F31.9 - Bipolar disorder, unspecified Plan: Continue lamotrigine and Seroquel. Follow-up with psychiatry. (3) Mixed hyperlipidemia: Code(s): E78.2 - Mixed hyperlipidemia Plan: Continue statins and fibrates. (4) Migraine: Code(s): G43.909 - Migraine, unspecified, not intractable, without status migrainosus Plan: Continue sumatriptan. Referred to neurology. Orders: Orders Influenza [id number] Immunization Today Z23 - Encounter for immunization Thyroid Stimulating Hormone Today E03.9 - Hypothyroidism, unspecified Referrals Neurology Referral G43.909 - Migraine, unspecified, not intractable, without status migrainosus Coding Level of Care Code Est Pt Level 4 (27169) Diagnoses Hypothyroidism, unspecified type E03.9 Hypothyroidism type: unspecified Bipolar 1 disorder F31.9 Mixed hyperlipidemia E78.2 Migraine G43.909 Time Spent (min) 23
== END 2023-03-19 09:32 | disposition home or self-care (01) ==
PROVIDERS: PCP Internal Medicine; Visit Provider Internal Medicine
DX: Z23 Encounter for immunization (principal); E03.9 Hypothyroidism, unspecified; F31.9 Bipolar disorder, unspecified; K21.9 Gastro-esophageal reflux disease without esophagitis; G43.909 Migraine, unspecified, not intractable, without status migrainosus
CPT/HCPCS: 90471; 90686; 99214

== ENCOUNTER 2023-03-19 09:38 | Outpatient (REF) | payer OTHER, SELFPAY ==
[2023-03-19 11:02] LABS: Thyroid Stimulating Hormone 1.65 uIU/mL (0.32-4.0)
== END 2023-03-19 09:39 | disposition home or self-care (01) ==
LOC: HO.LAB 09:38
PROVIDERS: PCP Internal Medicine; Visit Provider Internal Medicine
DX: E03.9 Hypothyroidism, unspecified (principal)
CPT/HCPCS: 36415; 84443

== ENCOUNTER 2023-08-19 08:42 | Outpatient (AMB) | payer OTHER, SELFPAY ==
[2023-08-19 08:46] VITALS: BP 132/80; BMI 31.1
--- NOTE | 2023-08-19 08:46 | MHC.PC.OV ---
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 Required: No Accompanied by: Self / Same As Patient Allergies polyethylene glycol 3350 [From Colyte] Allergy (Severe, Verified 08/19/23 09:29) redness of skin, itch potassium chloride [From Colyte] Allergy (Severe, Verified 08/19/23 09:29) redness of skin, itch sodium bicarbonate [From Colyte] Allergy (Severe, Verified 08/19/23 09:29) redness of skin, itch sodium chloride [From Colyte] Allergy (Severe, Verified 08/19/23 09:29) redness of skin, itch sodium sulfate [From Colyte] Allergy (Severe, Verified 08/19/23 09:29) redness of skin, itch diclofenac Adverse Reaction (Intermediate, Verified 08/19/23 09:29) gastrointestinal bleeding leflunomide Adverse Reaction (Intermediate, Verified 08/19/23 09:29) skin spots Medication List - Last Reconciled 08/19/23 by Kerry Chu MD bupropion HCl 300 mg PO DAILY cholecalciferol (vitamin D3) 25 mcg PO DAILY 90 days escitalopram oxalate 20 mg PO DAILY fenofibrate 54 mg PO DAILY 90 days lamotrigine 200 mg PO BEDTIME lamotrigine 50 mg PO QAM levothyroxine 75 mcg PO QAM 90 days linaclotide (Linzess) 145 mcg PO QAM lorazepam 1 mg PO BEDTIME PRN omeprazole 20 mg PO DAILY 90 days quetiapine 50 mg PO BEDTIME quetiapine 100 mg PO BEDTIME rosuvastatin 20 mg PO DAILY 90 days sennosides (senna) 34.4 mg (4 x 8.6 mg) PO BEDTIME PRN 90 days sumatriptan succinate 25 mg PO Q2-4H PRN 30 days Tobacco use date assessed: 08/19/23 Dental Screening Dental Screen Date: 08/19/23 Did you have a dental visit in the last 12 months?: No Did you have a dental problem in the last 6 months where you did not have access to dental care?: No Was dental information given to patient?: Patient has dentist HPI HPI Comments History of Present Illness Details This is a 57-year-old female with mild major depression, bipolar disorder and rheumatoid arthritis that comes for her physical exam. Major depression and bipolar disorder are follow by Psychiatry and has been stable with medications. As per patient she has rheumatoid arthritis and does not have a crusher plant operator because every time she goes to a crusher plant operator they only speak Spanish and does not have an implementation consultant. Last mammogram was over a year ago. Last colonoscopy was 2015. No need for Pap smear due to hysterectomy for benign reasons. [facility] Medical History (Updated 08/19/23 @ 09:44 by Kerry Chu MD) Physical exam Skin lesion GERD (gastroesophageal reflux disease) Mixed hyperlipidemia Obese Bipolar 1 disorder Rheumatoid arthritis Depression with anxiety Hypothyroid Surgical History History of hand surgery H/O esophagogastroduodenoscopy H/O colonoscopy S/P SALOME-BSO History of cholecystectomy History of History of intestinal surgery Family History Mother Pre-diabetes Asthma Father Lung cancer Family/Other Mental health disorder Social History Housing: Apartment Alcohol intake: former Patient Tobacco Use Status: Former Tobacco user Tobacco use type: Cigarette e-Cigarette/Vaping Use: Never Used Second Hand Smoke Exposure: No service: No Current occupational status: disabled Cognitive needs: No Hearing needs: No Vision needs: Yes Questionnaire PHQ-9 Over the last 2 weeks, how often have you been bothered by any of the following problems? 1. Little interest or pleasure in doing things: more than half the days 2. Feeling down, depressed, or hopeless: more than half the days 3. Trouble falling or staying asleep, or sleeping too much: not at all 4. Feeling tired or having little energy: more than half the days 5. Poor appetite or overeating: not at all 6. Feeling bad about yourself - or that you are a failure or have let yourself or your family down: not at all 7. Trouble concentrating on things, such as reading the newspaper or watching television: several days 8. Moving or speaking so slowly that other people could have noticed. Or the opposite - being so fidgety or restless that you have been moving around a lot more than usual: not at all 9. Thoughts that you would be better off or of hurting yourself in some way: not at all Total score: 7 Depression Screening Interpretation: Positive Depression Screening Follow-up: Existing condition, In treatment and Community Mental Health Worker F/U Depression Screening Done: Yes 68078 - PHQ-9 Billing: Yes Source: Developed by Drs. Stephen Kimbrough, Heidi Veras, Nelson Salvador and colleagues, with an educational natalie from [employer]. Thrive Questionnaire Date Thrive assessed: 08/19/23 I am a: Patient What is your living situation today?: I have a steady place to live Within the past 12 months, did the food you bought not last and you didn't have the money to get more?: Never true Within the past 12 months, did you worry whether your food would run out before you got money to buy more?: Never true Do you have trouble paying for medicines?: No Do you have trouble getting transportation to medical appointments?: No Do you have trouble paying your heating and electricity bill?: No Do you have trouble taking care of your child, family member or friend?: No Do you have trouble with day-to-day activities such as bathing, preparing meals, shopping, managing finances, etc.?: No Are you currently unemployed and looking for a job?: No Are you interested in more education?: No Please select the resources that you would like help with: None Currently or been in a relationship where the following occur: no concerns reported THRIVE Score: 0 AUDIT C Alcohol Use Questionnaire (AUDIT-C) 1. How often do you have a drink containing alcohol?: Never Total Score: 0 Score Reviewed/Action Taken: No KRISTOPHER-7 AMB Questionnaire KRISTOPHER-7 Date KRISTOPHER - 7 assessed: 08/19/23 Feeling nervous, anxious, or on edge: 2 = More than half the days Not being able to stop or control worryin = Several days Worrying too much about different things: 2 = More than half the days Trouble relaxin = Not at all Being so restless that it is hard to sit still: 0 = Not at all Becoming easily annoyed or irritable: 2 = More than half the days Feeling afraid as if something awful might happen: 1 = Several days Total KRISTOPHER-7 score (0-4 normal; 5-9 mild; 10-14 moderate; 15-21 severe): 8 Source: Developed by Drs. Stephen Kimbrough, Heidi Veras, Nelson Salvador and colleagues, with an educational natalie from [employer]. KRISTOPHER-7 Assessment Billing KRISTOPHER-7 Assessment Tool: KRISTOPHER-7 Assessment 57130 Review of Systems Const All systems reviewed & are unremarkable except as noted in HPI and below Eyes Reports no additional complaints, Denies change in vision and Denies other visual disturbances Card Denies chest pain at rest, Denies chest pain with activity, Denies edema, Denies irregular heart rhythm, Denies claudication, Denies dyspnea, Denies dyspnea on exertion, Denies orthopnea, Denies paroxysmal nocturnal dyspnea and Denies slow heart rate Resp Denies cough, Denies dyspnea and Denies dyspnea on exertion GI Denies abdominal pain, Denies change in bowel habits, Denies excessive flatus, Denies nausea and Denies vomiting Denies urinary incontinence, Denies urinary hesitancy and Denies urinary urgency Musc Denies abnormal gait, Denies atrophy, Denies deformity and Denies limited range of motion Skin/Breast Denies bleeding lesions, Denies changing lesions and Denies rash Neuro Denies abnormal gait and Denies lack of coordination Physical exam (Primary Care) Vital Signs: Last Vital Signs BP 132/80 08/19/23 08:46 BMI result Body Mass Index 31.1 Tobacco/Smoking Status: Tobacco use Status Tobacco use date assessed 08/19/23 08/19/23 08:53 Patient Tobacco Use Status Former Tobacco user 08/19/23 08:53 Tobacco use type Cigarette 08/19/23 08:53 e-Cigarette/Vaping Use Never Used 08/19/23 08:53 PHQ-9: PHQ-9 Score PHQ-9: Total score 7 08/19/23 08:53 Depression Screening Interpretation: Positive Depression Screening Follow-up: Existing condition, In treatment and Community Mental Health Worker F/U Thrive Assessment: Date of Thrive Assessment Date Thrive assessed 08/19/23 08/19/23 08:53 Currently or been in a relationship where the following occur: no concerns reported Const Orientation/consciousness: patient oriented x3 HENMT Head: Yes normal to inspection, Yes normocephalic and Yes atraumatic Ears: external ears normal Eyes General: appearance normal, both eyes and all related structures Eyelids: Yes eyelids normal Conjunctivae: conjunctivae normal Neck Neck: Yes normal visual inspection and Yes supple Resp Effort & Inspection: normal respiratory effort Auscultation: clear to auscultation bilaterally Cardio Jugular venous distension: no JVD Rate: regular rate Rhythm: regular rhythm Heart sounds: S1 normal heart sound present and S2 normal heart sound present GI Inspection: Yes normal to inspection Palpation (GI): Soft to palpation and nontender Auscultation: normal bowel sounds Skin General skin exam: no rashes or lesions noted Neuro General: patient oriented x3 and no focal motor deficits Extrem General: Yes full ROM Psych Appearance: grossly normal Assessment and Plan Assessment & Plan (1) Physical exam: Code(s): Z00.00 - Encounter for general adult medical examination without abnormal findings Plan: Repeat in a year. (2) Bipolar 1 disorder: Code(s): F31.9 - Bipolar disorder, unspecified Plan: Continue Lamictal. Follow-up with psychiatry. (3) Rheumatoid arthritis: Code(s): M06.9 - Rheumatoid arthritis, unspecified Plan: Referred to rheumatology. (4) Mild major depression: Code(s): F32.0 - Major depressive disorder, single episode, mild Plan: Continue bupropion. Follow-up with psychiatry. Orders: Orders Lipid Panel Today E78.5 - Hyperlipidemia, unspecified, Z00.00 - Encounter for general adult medical examination without abnormal findings Rheumatoid Factor Today M06.9 - Rheumatoid arthritis, unspecified MM screening mammo BI Today Z12.31 - Encounter for screening mammogram for malignant neoplasm of breast Comprehensive [place]. Panel Fast Today Z00.00 - Encounter for general adult medical examination without abnormal findings Thyroid Stimulating Hormone Today E03.9 - Hypothyroidism, unspecified Cyclic Citrullinated Peptide Today M06.9 - Rheumatoid arthritis, unspecified KERRY Reflex Titer and Pattern Today M06.9 - Rheumatoid arthritis, unspecified Erythrocyte Sedimentation Rate Today M06.9 - Rheumatoid arthritis, unspecified CRP High Sensitivity Today M06.9 - Rheumatoid arthritis, unspecified Complement C3 Today M06.9 - Rheumatoid arthritis, unspecified Complement C4 Today M06.9 - Rheumatoid arthritis, unspecified Referrals Rheumatology Referral M06.9 - Rheumatoid arthritis, unspecified Coding Level of Care Code Est Pt Prev Care 40-64y(24960) Diagnoses Physical exam Z00.00 Bipolar 1 disorder F31.9 Rheumatoid arthritis M06.9 Mild major depression F32.0 Additional Codes KRISTOPHER-7 Assessment Billing - KRISTOPHER-7 Assessment Tool: KRISTOPHER-7 Assessment 27834 ([id number]) Time Spent (min) 36
== END 2023-08-19 09:46 | disposition home or self-care (01) ==
PROVIDERS: Visit Provider Internal Medicine
DX: Z00.00 Encounter for general adult medical examination without abnormal findings (principal); F31.9 Bipolar disorder, unspecified; M06.9 Rheumatoid arthritis, unspecified; Z90.710 Acquired absence of both cervix and uterus
CPT/HCPCS: 99396

== ENCOUNTER 2023-08-19 09:57 | Outpatient (AMB) | payer OTHER, SELFPAY ==
--- NOTE | 2023-08-19 10:06 | MHC.OFFVIS ---
Intake Vital Signs 08/19/23 10:07 Height 4 ft 11 in Weight 153 lb 14.122 oz BMI 31.1 BP 150/83 H Blood Pressure Location Lt brachial Position Sitting Pulse 92 Pulse Source Pulse Oximeter Intake Visit Reasons: 6 month follow up Intake Note: Pt presents to the office today for a 6 month follow up for constipation. Pt states she is doing well with the medications and she states she is going more regularly now. She states she moves her bowels about 3x a week. Pt denies any other GI concerns at this time. Allergies polyethylene glycol 3350 [From Colyte] Allergy (Severe, Verified 08/19/23 10:07) redness of skin, itch potassium chloride [From Colyte] Allergy (Severe, Verified 08/19/23 10:07) redness of skin, itch sodium bicarbonate [From Colyte] Allergy (Severe, Verified 08/19/23 10:07) redness of skin, itch sodium chloride [From Colyte] Allergy (Severe, Verified 08/19/23 10:07) redness of skin, itch sodium sulfate [From Colyte] Allergy (Severe, Verified 08/19/23 10:07) redness of skin, itch diclofenac Adverse Reaction (Intermediate, Verified 08/19/23 10:07) gastrointestinal bleeding leflunomide Adverse Reaction (Intermediate, Verified 08/19/23 10:07) skin spots HPI 6 month follow up HPI Details Assessment & Plan (1) Chronic idiopathic constipation: Code(s): K59.04 - Chronic idiopathic constipation Plan: Japanese #declines She is doing well on the 145mcg LInzess and she uses senna intermittently. This has resolved her diarrhea. She is out of her omeprazole and we will refill this. She had a colonoscopy in 2015 at [facility] [place] and will be due for repeat in 2025. She is satisfied the GI regimen for now and agreeable to a 6 month follow-up. ROV 6 mos. (2) GERD (gastroesophageal reflux disease): Code(s): K21.9 - Gastro-esophageal reflux disease without esophagitis Medications: Refilled omeprazole 20 mg PO DAILY 90 days 90 caps 1RF K21.9 - Gastro-eso phageal reflux dis ease without esoph agitis sennosides (senna) 34.4 mg (4 x 8.6 m g) PO BEDTIME 90 d ays PRN 360 tabs 3 RF constipation linaclotide (Linze ss) 145 mcg PO QAM 30 caps 6RF K59.04 - Chronic i diopathic constipa tion Discontinued linaclotide (Linze ss) Discontinue d Reason: Doctor' s Order 290 mcg PO QAM 30 days 30 caps 6RF K59.04 - Chronic i diopathic constipa tion TODAY'S VISIT Japanese #declines She is now satisfied with the Linzess 145mcg with the senna - the 290 does was too high. She continues on omeprazole 20mg a day with good control. ROV 6 mos. PFSH Medical History Physical exam Skin lesion GERD (gastroesophageal reflux disease) Mixed hyperlipidemia Obese Bipolar 1 disorder Rheumatoid arthritis Depression with anxiety Hypothyroid Surgical History History of hand surgery H/O esophagogastroduodenoscopy H/O colonoscopy S/P SALOME-BSO History of cholecystectomy History of History of intestinal surgery Family History Mother Pre-diabetes Asthma Father Lung cancer Family/Other Mental health disorder Social History Housing: Apartment Alcohol intake: former Patient Tobacco Use Status: Former Tobacco user Tobacco use type: Cigarette e-Cigarette/Vaping Use: Never Used Second Hand Smoke Exposure: No service: No Current occupational status: disabled Cognitive needs: No Hearing needs: No Vision needs: Yes Review of Systems Const Denies fatigue, Denies fever(s), Denies night sweats, Denies poor appetite and Denies weight loss Eyes Details: glasses Reports requires corrective lenses ENT Reports Normal hearing present, Denies dental pain, Denies dysphagia, Denies hearing loss, Denies mouth pain, Denies odynophagia, Denies throat swelling, Denies tongue swelling and Reports other (Dentition adequate) Card Reports no additional complaints Resp Reports no additional complaints GI Details: Denies abdominal pain, Denies melena, Denies bloating, Denies hematochezia, Reports constipation, Denies GI cramping, Denies dysphagia, Denies excessive flatus, Denies early satiety, Reports heartburn, Denies diarrhea, Denies nausea, Denies odynophagia, Denies vomiting and Denies hematemesis Skin/Breast Denies pruritus, Denies lesions, Denies rash and Denies jaundice Neuro Reports Normal hearing present and Denies Abnormal speech present Endo Denies fatigue Aller/Immun Denies throat swelling and Denies tongue swelling Physical Exam Vital Signs: Last Vital Signs Pulse 92 08/19/23 10:07 BP 150/83 H 08/19/23 10:07 BMI result Body Mass Index 31.1 Const General: cooperative, no acute distress, well developed and well groomed Nutritional Appearance: well nourished and obese Orientation/consciousness: oriented to person, oriented to place and oriented to time Limitations: No language barrier HEENT Head: Yes normocephalic and Yes atraumatic Eyes General: appearance normal, both eyes and all related structures Pupils: Equal, round and reactive pupils present Neck Neck: Yes normal visual inspection and Yes no lymphadenopathy Thyroid: Thyroid normal Resp Effort & Inspection: normal respiratory effort and able to speak in complete sentences Auscultation: clear to auscultation bilaterally Cardio Rate: regular rate Rhythm: regular rhythm Heart sounds: Normal, physiologic split S2 sound present Peripheral pulses: radial pulses present and posterior tibial pulses present GI Inspection: No distended, No Abdominal panniculus present and Yes obesity Palpation (GI): Soft to palpation, nontender, no guarding, not rigid and No hepatosplenomegaly present Percussion: Yes normal to percussion Auscultation: normal bowel sounds Rectal Exam - Female: deferred Skin General skin exam: no rashes or lesions noted, turgor normal, skin not dry, no jaundice, No spider nevi and no striae Rashes: no rashes Nails: normal Neuro General: oriented to person, oriented to place and oriented to time Cranial nerves: Yes Equal, round and reactive pupils present and Yes Normal hearing present Speech: No Abnormal speech present Extrem General: Yes normal to inspection, No clubbing, No cyanosis and No edema Psych Appearance: grossly normal and well kempt Mental Status: mental status grossly normal Speech and movement: Normal speech and movement present Affect: normal affect Attitude: cooperative Thought process: Normal thought process present and not confabulating Thought content: Normal thought content present Insight: Limited insight present (Psych) Judgement: Limited judgement present (Psych) Assessment & Plan Assessment & Plan (1) Chronic idiopathic constipation: Code(s): K59.04 - Chronic idiopathic constipation (2) GERD (gastroesophageal reflux disease): Code(s): K21.9 - Gastro-esophageal reflux disease without esophagitis Plan Japanese #declines She is now satisfied with the Linzess 145mcg with the senna - the 290 does was too high. She continues on omeprazole 20mg a day with good control. ROV 6 mos. Coding Level of Care Code Est Pt Level 3 (39348) Diagnoses Chronic idiopathic constipation K59.04 GERD (gastroesophageal reflux disease) K21.9
[2023-08-19 10:07] VITALS: BP 150/83; PULSE 92; BMI 31.1
== END 2023-08-19 10:29 | disposition home or self-care (01) ==
PROVIDERS: PCP Internal Medicine; Visit Provider Nurse Practitioner
DX: K59.04 Chronic idiopathic constipation (principal); K21.9 Gastro-esophageal reflux disease without esophagitis
CPT/HCPCS: 99213

== ENCOUNTER → 2023-08-19 09:57 | Outpatient (BNVA) | payer OTHER, SELFPAY | PROVIDERS: PCP Internal Medicine; Visit Provider Nurse Practitioner | DX: K59.04 Chronic idiopathic constipation (principal); K21.9 Gastro-esophageal reflux disease without esophagitis; Z79.899 Other long term (current) drug therapy | CPT/HCPCS: 99212 ==

== ENCOUNTER 2023-09-16 12:02 | Outpatient (REF) | payer OTHER, SELFPAY | END 2023-09-16 12:03 | disposition home or self-care (01) | LOC: HO.MAMMO 12:02 | PROVIDERS: PCP Internal Medicine; Visit Provider Internal Medicine | DX: Z12.31 Encounter for screening mammogram for malignant neoplasm of breast (principal) | CPT/HCPCS: 77063; 77067 ==

== ENCOUNTER → 2023-09-16 12:15 | Outpatient (BNV) | payer OTHER, SELFPAY | PROVIDERS: PCP Internal Medicine; Visit Provider Radiology Diagnostic Radiology | DX: Z12.31 Encounter for screening mammogram for malignant neoplasm of breast (principal) | CPT/HCPCS: 77063; 77067 ==

== ENCOUNTER 2023-09-23 12:50 | Outpatient (REF) | payer OTHER, SELFPAY ==
--- NOTE | ~2023-09-23 | XR_ITS ---
EXAMINATION: XR FOOT, RIGHT CLINICAL INFORMATION: Pain, without injury. COMPARISON: None available. TECHNIQUE: AP, lateral, and oblique views of the right foot. FINDINGS: The bones and soft tissues are normal. No fracture. Alignment is anatomic. Joint spaces are maintained. XR/XR foot RT min 3V IMPRESSION: Normal right foot. EXAMINATION: XR FOOT, LEFT CLINICAL INFORMATION: Pain, without injury. COMPARISON: None available. TECHNIQUE: AP, lateral, and oblique views of the left foot. FINDINGS: Bony alignment and mineralization are normal. No fracture, dislocation or left ankle joint effusion is seen. Boehler's angle is normal. There is a moderate posterior calcaneal spur. No focal soft tissue swelling, gas or foreign body is seen. IMPRESSION: 1. No fracture, dislocation or left ankle joint effusion is seen. 2. There is a moderate posterior calcaneal spur.
--- NOTE | ~2023-09-23 | XR_ITS ---
EXAMINATION: XR HAND, RIGHT CLINICAL INFORMATION: Pain without injury. COMPARISON: None available. TECHNIQUE: PA, lateral, and oblique views of the right hand. FINDINGS: The bones and soft tissues are normal. No fracture. Alignment is anatomic. Joint spaces are maintained. No erosions or soft tissue calcifications. XR/XR hand LT min 3V IMPRESSION: Normal right hand. EXAMINATION: XR HAND, LEFT CLINICAL INFORMATION: Pain without injury. COMPARISON: None available. TECHNIQUE: PA, lateral, and oblique views of the left hand. FINDINGS: The bones and soft tissues are normal. No fracture. Alignment is anatomic. Joint spaces are maintained. No erosions or soft tissue calcifications. IMPRESSION: Normal left hand.
--- NOTE | ~2023-09-23 | XR_ITS ---
EXAMINATION: XR FOOT, RIGHT CLINICAL INFORMATION: Pain, without injury. COMPARISON: None available. TECHNIQUE: AP, lateral, and oblique views of the right foot. FINDINGS: The bones and soft tissues are normal. No fracture. Alignment is anatomic. Joint spaces are maintained. XR/XR foot LT min 3V IMPRESSION: Normal right foot. EXAMINATION: XR FOOT, LEFT CLINICAL INFORMATION: Pain, without injury. COMPARISON: None available. TECHNIQUE: AP, lateral, and oblique views of the left foot. FINDINGS: Bony alignment and mineralization are normal. No fracture, dislocation or left ankle joint effusion is seen. Boehler's angle is normal. There is a moderate posterior calcaneal spur. No focal soft tissue swelling, gas or foreign body is seen. IMPRESSION: 1. No fracture, dislocation or left ankle joint effusion is seen. 2. There is a moderate posterior calcaneal spur.
--- NOTE | ~2023-09-23 | XR_ITS ---
EXAMINATION: XR HAND, RIGHT CLINICAL INFORMATION: Pain without injury. COMPARISON: None available. TECHNIQUE: PA, lateral, and oblique views of the right hand. FINDINGS: The bones and soft tissues are normal. No fracture. Alignment is anatomic. Joint spaces are maintained. No erosions or soft tissue calcifications. XR/XR hand RT min 3V IMPRESSION: Normal right hand. EXAMINATION: XR HAND, LEFT CLINICAL INFORMATION: Pain without injury. COMPARISON: None available. TECHNIQUE: PA, lateral, and oblique views of the left hand. FINDINGS: The bones and soft tissues are normal. No fracture. Alignment is anatomic. Joint spaces are maintained. No erosions or soft tissue calcifications. IMPRESSION: Normal left hand.
[2023-09-23 15:40] LABS: C Reactive Protein 0.21 mg/dL (< or = 0.50); Uric Acid 4.6 mg/dL (2.4-5.7)
[2023-09-24 08:37] LABS: HBS Num1 0.31 mIU/mL (0-7.99); HBsAGNum1 0.32 S/CO (0.00-0.99); Hepatitis A Antibody IgM 0.13 Index (0-0.79); Hepatitis B Core Antibody Nonreactive (Nonreactive); Hepatitis B Surface Antigen Negative (Negative); ~HepC Num1 0.08 S/CO (0.00-0.79); ~Hepatitis A Antibody IgM Nonreactive (Nonreactive); ~Hepatitis B Surface Antibody NONREACTIVE (Nonreactive); ~Hepatitis C Antibody Nonreactive (Nonreactive)
[2023-09-24 20:48] LABS: Anti DNA DS Antibody 2 IU/mL; Anti-Centromere B Antibodies <1.0 NEG AI (<1.0 NEG); Antibody to SS-A Antigen <1.0 NEG AI (<1.0 NEG); Antibody to SS-B Antigen <1.0 NEG AI (<1.0 NEG); SM/Ribonucleoprotein Ab <1.0 NEG AI (<1.0 NEG); Scleroderma 70 Antibody <1.0 NEG AI (<1.0 NEG); Smith Protein <1.0 NEG AI (<1.0 NEG)
[2023-09-24 21:54] LABS: Prot Elec - Albumin 4.3 g/dL (3.8-4.8); Prot Elec - Alpha1 0.3 g/dL (0.2-0.3); Prot Elec - Alpha2 0.7 g/dL (0.5-0.9); Prot Elec - Beta 1 0.6 g/dL (0.4-0.6); Prot Elec - Beta 2 0.6 g/dL (0.2-0.5); Prot Elec - Total Protein 7.4 g/dL (6.1-8.1)
[2023-09-25 14:24] LABS: IgA 512 mg/dL (47-310); IgG 1067 mg/dL (600-1640); IgM 106 mg/dL (50-300)
[2023-09-25 23:29] LABS: TS Negative Control Passed; TS Panel A 3; TS Panel B 5; TS Positive Control Passed; TSpotTB Borderline (Negative)
== END 2023-09-23 12:51 | disposition home or self-care (01) ==
LOC: HO.XRAY 12:50
PROVIDERS: PCP Internal Medicine; Visit Provider Nurse Practitioner Family
DX: Z11.9 Encounter for screening for infectious and parasitic diseases, unspecified (principal); M79.671 Pain in right foot; M79.672 Pain in left foot; M25.532 Pain in left wrist; M79.641 Pain in right hand; M79.642 Pain in left hand; M06.032 Rheumatoid arthritis without rheumatoid factor, left wrist
CPT/HCPCS: 36415; 73130; 73630; 82550; 82784; 84165; 84550; 86140; 86225; 86235; 86334; 86481; 86704; 86706; 86709; 86803; 87340; 99202

== ENCOUNTER 2023-09-23 12:50 | Outpatient (AMB) | payer OTHER, SELFPAY ==
--- NOTE | 2023-09-23 12:51 | MHC.OFFVIS ---
Vital Signs 09/23/23 13:03 Height 4 ft 11 in Weight 152 lb 12.485 oz BMI 30.9 BP 130/70 Blood Pressure Location Rt brachial Position Sitting Pulse 88 Pulse Source Palpation Intake Visit Reasons: RA Intake Note: New patient, internally referred, presents to office today for RA. Joints affected: Multiple joints Pain began approx: 2018 Has tried: PT and oral meds Clamp Operator Required: Yes Clamp Operator Language: Shared Services Representative Name: Devyn [id number] Information Interpreted: clinical only Accompanied by: Self / Same As Patient Allergies polyethylene glycol 3350 [From Colyte] Allergy (Severe, Verified 10/14/23 14:48) redness of skin, itch potassium chloride [From Colyte] Allergy (Severe, Verified 10/14/23 14:48) redness of skin, itch sodium bicarbonate [From Colyte] Allergy (Severe, Verified 10/14/23 14:48) redness of skin, itch sodium chloride [From Colyte] Allergy (Severe, Verified 10/14/23 14:48) redness of skin, itch sodium sulfate [From Colyte] Allergy (Severe, Verified 10/14/23 14:48) redness of skin, itch diclofenac Adverse Reaction (Intermediate, Verified 10/14/23 14:48) gastrointestinal bleeding leflunomide Adverse Reaction (Intermediate, Verified 10/14/23 14:48) skin spots HPI Comments Details: Ms. Lauren 57-year-old female presents for transfer of care for possible rheumatoid arthritis. Upon inquiry the patient reveals: --she was diagnosed with RA about 3 years ago. Per patient, the banking paralegal did some blood tests and told her she had RA secondary to left wrist swelling. The swelling has not returned since but she continues with occasional tenderness to the area --Drapery Operator left, and new ones tried was not accepted interpreters. --three to four years RA, --has taken Leflunomide, Prednisone and diclofenac - Took Prednisone for 3 months - had some facial puffiness with the prednisone; Took Leflunomide for 4 months but cause spots on skin - DERM consult told her it was LEF and the spots resolved after stopped LEF. --States they did not help. --Surgeries on Wrist and Fingers --Surgery on both wrist for Tendonitis two years ago. Two weeks ago started having pain, xray showed tear in the left and she received an injection and the pain resolved. --back, knee and ankles and toes that cause pain with walking but pain resolves next day PCP visit 08/19/2023 This is a 57-year-old female with mild major depression, bipolar disorder and rheumatoid arthritis that comes for her physical exam. Major depression and bipolar disorder are follow by Psychiatry and has been stable with medications. As per patient she has rheumatoid arthritis and does not have a banking paralegal because every time she goes to a banking paralegal they only speak Ukrainian and does not have an hydrogeology professor. Last mammogram was over a year ago. Last colonoscopy was 2015. No need for Pap smear due to hysterectomy for benign reasons. [facility] Medical History (Updated 10/16/23 @ 01:14 by AYAD Sorensen) Bilateral foot pain Bilateral hand pain Screening examination for infectious disease Physical exam Skin lesion GERD (gastroesophageal reflux disease) Mixed hyperlipidemia Obese Bipolar 1 disorder Rheumatoid arthritis Depression with anxiety Hypothyroid Surgical History History of hand surgery H/O esophagogastroduodenoscopy H/O colonoscopy S/P SALOME-BSO History of cholecystectomy History of History of intestinal surgery Family History Mother Pre-diabetes Asthma Arthritis Father Lung cancer Family/Other Mental health disorder Sister Arthritis Maternal Grandmother Arthritis Social History (Updated 10/14/23 @ 13:11 by TAMI Mckeon) Housing: Apartment Alcohol intake: current Alcohol intake frequency: holidays/special occasions only Alcohol type: wine Patient Tobacco Use Status: Former Tobacco user Tobacco use type: Cigarette e-Cigarette/Vaping Use: Never Used Second Hand Smoke Exposure: No service: No Current occupational status: disabled Cognitive needs: No Hearing needs: No Vision needs: Yes Review of Systems Const All systems reviewed & are unremarkable except as noted in HPI and below Physical Exam Vital Signs: Last Vital Signs Pulse 88 09/23/23 13:03 BP 130/70 09/23/23 13:03 BMI result Body Mass Index 30.9 APPEARANCE: Patient in no acute distress EYES no redness, normal EARS:? External ear normal. NOSE/SINUS:? Airflow through both nares, no nasal discharge, no bleeding THROAT:? Oral mucosa moist, no ulcerations NECK:? No thyromegaly or masses, no adenopathy, trachea midline. HEART:? Regular rhythm, S1-S2 heard, no murmurs, rubs or gallops. LUNG:? Clear to percussion and auscultation EXTREMITIES:? No edema, no calf tenderness, normal peripheral pulses. NEURO:? Oriented and alert x3.? No focal weakness.? Reflexes symmetric.? Gait normal. SKIN:? There are no skin lesions evident. No objective signs of Raynaud's phenomenon. JOINT EXAM: Cervical Spine:.? Full range of motion without pain; no tenderness. Thoracic Spine:.? No scoliosis.? No tenderness on palpation. Lumbar Spine:.? Alignment normal.? Full range of motion without pain, no tenderness. Chest Wall:.? No tenderness, swelling, increased warmth or erythema. Hands:.? Normal pain-free range of motion without tenderness, swelling, increased warmth or erythema. Able to make a full fist and has a good formal waiter/waitress strength. Wrists:.? Normal pain-free range of motion without tenderness, swelling, increased warmth or erythema. Elbows:. Normal pain-free range of motion without tenderness, swelling, increased warmth or erythema. Shoulders:.?? Full range of motion without pain. No tenderness, weakness, swelling, increased warmth or erythema. Hips:.? Full range of motion without pain. Hip bursa:.? No tenderness. Knees:.?? Normal pain-free range of motion without tenderness, swelling, increased warmth or erythema.? There is no effusion or crepitation Ankles:.? Normal pain-free range of motion without tenderness, swelling, increased warmth or erythema. Feet:.? Normal pain-free range of motion without tenderness, swelling, increased warmth or erythema. Tender points:? No tenderness to digital palpation at the occiput, trapezius, second rib, lateral epicondyle, knees, greater trochanter and gluteal area bilaterally. Results Reviewed Results Reviewed: EXAMINATION: XR WRIST, LEFT CLINICAL INFORMATION: Pain. COMPARISON: None TECHNIQUE: Four views of the left wrist. FINDINGS: No acute fracture or dislocation is evident. Joint spaces are maintained. There is mild spurring about the 1st carpometacarpal joint. There is some mild spurring about the triscaphe joint. There is a sclerotic region within the neck of the scaphoid which may be related to bone island or healed injury. There appears be soft tissue calcification versus artifact about the radial aspect of the distal right radius. XR/XR wrist LT 2V IMPRESSION: Mild degenerative change as described. No acute fracture or dislocation evident. Assessment & Plan Assessment & Plan (1) Rheumatoid arthritis: Code(s): M06.9 - Rheumatoid arthritis, unspecified Category: Medical Qualifiers: Rheumatoid arthritis location: wrist Rheumatoid factor presence: without rheumatoid factor Laterality: left Qualified Code(s): M06.032 - Rheumatoid arthritis without rheumatoid factor, left wrist (2) Left wrist pain: Code(s): M25.532 - Pain in left wrist Category: Medical (3) Bilateral foot pain: Code(s): M79.671 - Pain in right foot; M79.672 - Pain in left foot Category: Medical (4) Bilateral hand pain: Code(s): M79.641 - Pain in right hand; M79.642 - Pain in left hand Category: Medical Plan Ms. Lauren presents for transfer of care for her possible rheumatoid arthritis. Based on evaluation history this does not clinically present as rheumatoid arthritis. This sounds more likely as chondrocalcinosis and after reviewing the hand x-ray I can see that there are calcifications in the area of the wrist where the swelling occurred. She has also had bouts of tendonitis and reports having surgery to resolve, she denies any chronic recurrence of hand swelling. There is no synovitis seen on PE. She does she gets some mild hand stiffness in the morning when she wakes up, but the stiffness lasts for less than 15 minutes. It also improves as she uses her hands. The patient denies any other joint swelling but reports pain to her bilateral feet. Nonetheless I will do a thorough workup with a rheumatology panel and imaging for hands and feet to evaluate further. At this time I do not see a clinical presentation for RA I spent 45 minutes reviewing history, evaluating patient and documenting. Follow-up in 3 weeks Orders: Orders Immunoglobulins,IgG IgA IgM 09/23/23 M06.9 - Rheumatoid arthritis, unspecified Protein Electrophoresis, Serum 09/23/23 M06.9 - Rheumatoid arthritis, unspecified Anti DNA DS Antibody 09/23/23 M06.9 - Rheumatoid arthritis, unspecified Anti-Centromere B Antibodies 09/23/23 M06.9 - Rheumatoid arthritis, unspecified Sjogren's Antibodies 09/23/23 M06.9 - Rheumatoid arthritis, unspecified Scleroderma 70 Antibody 09/23/23 M06.9 - Rheumatoid arthritis, unspecified Uric Acid 09/23/23 M06.9 - Rheumatoid arthritis, unspecified T Spot TB 09/23/23 M06.9 - Rheumatoid arthritis, unspecified, Z11.9 - Encounter for screening for infectious and parasitic diseases, unspecified Hepatitis A,B,C Profile 09/23/23 M06.9 - Rheumatoid arthritis, unspecified, Z11.9 - Encounter for screening for infectious and parasitic diseases, unspecified XR foot LT min 3V 09/23/23 M79.671 - Pain in right foot, M79.672 - Pain in left foot Immunofixation Pnl, Serum 09/23/23 M06.9 - Rheumatoid arthritis, unspecified C Reactive Protein 09/23/23 M06.9 - Rheumatoid arthritis, unspecified Anti Extractable Nuclear Ag 09/23/23 M06.9 - Rheumatoid arthritis, unspecified Creatine Kinase Total 09/23/23 M06.9 - Rheumatoid arthritis, unspecified XR hand RT min 3V 09/23/23 M25.532 - Pain in left wrist, M79.641 - Pain in right hand, M79.642 - Pain in left hand XR hand LT min 3V 09/23/23 M25.532 - Pain in left wrist, M79.641 - Pain in right hand, M79.642 - Pain in left hand XR foot RT min 3V 09/23/23 M79.671 - Pain in right foot, M79.672 - Pain in left foot Coding Level of Care Code New Pt Level 5 (85868) Diagnoses Rheumatoid arthritis involving left wrist with negative rheumatoid factor M06.032 Rheumatoid arthritis location: wrist Rheumatoid factor presence: without rheumatoid factor Laterality: left Left wrist pain M25.532 Bilateral foot pain M79.671; M79.672 Bilateral hand pain M79.641; M79.642
[2023-09-23 13:03] VITALS: BP 130/70; PULSE 88; BMI 30.9
== END 2023-09-23 13:45 | disposition home or self-care (01) ==
LOC: HO.RHE 12:50
PROVIDERS: PCP Internal Medicine; Visit Provider Nurse Practitioner Family
DX: M06.032 Rheumatoid arthritis without rheumatoid factor, left wrist (principal); M25.532 Pain in left wrist; M79.671 Pain in right foot; M79.672 Pain in left foot; M79.641 Pain in right hand; M79.642 Pain in left hand
CPT/HCPCS: 99204

== ENCOUNTER 2023-10-14 13:02 | Outpatient (AMB) | payer OTHER, SELFPAY ==
--- NOTE | 2023-10-14 13:05 | MHC.OFFVIS ---
Vital Signs 10/14/23 13:07 Height 4 ft 11 in Weight 147 lb 14.883 oz BMI 29.9 BP 142/84 H Blood Pressure Location Rt brachial Position Sitting Pulse 88 Pulse Source Pulse Oximeter Pulse Oximetry (%) 97 Oxygen Delivery Method Room Air Intake Visit Reasons: Hx of Poss RA/Hand Pain. Intake Note: Patient last seen on 09/23/23, presents to office today for RA and left hand pain follow up. 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 Required: Yes Mold Machine Operator Language: Senior Manager Mmcoe Name: Cheri,TAMI/AUNG and Tamara Accompanied by: Self / Same As Patient Allergies polyethylene glycol 3350 [From Colyte] Allergy (Severe, Verified 10/14/23 14:48) redness of skin, itch potassium chloride [From Colyte] Allergy (Severe, Verified 10/14/23 14:48) redness of skin, itch sodium bicarbonate [From Colyte] Allergy (Severe, Verified 10/14/23 14:48) redness of skin, itch sodium chloride [From Colyte] Allergy (Severe, Verified 10/14/23 14:48) redness of skin, itch sodium sulfate [From Colyte] Allergy (Severe, Verified 10/14/23 14:48) redness of skin, itch diclofenac Adverse Reaction (Intermediate, Verified 10/14/23 14:48) gastrointestinal bleeding leflunomide Adverse Reaction (Intermediate, Verified 10/14/23 14:48) skin spots HPI Comments Details: Ms. Lauren 57 you here for follow-up to review results for evaluation of RA> Initial History: Ms. Lauren 57-year-old female presents for transfer of care for possible rheumatoid arthritis. Upon inquiry the patient reveals: --she was diagnosed with RA about 3 years ago. Per patient, the high tension tester did some blood tests and told her she had RA secondary to left wrist swelling. The swelling has not returned since but she continues with occasional tenderness to the area --Snack Stewardess left, and new ones tried was not accepted interpreters. --three to four years RA, --has taken Leflunomide, Prednisone and diclofenac - Took Prednisone for 3 months - had some facial puffiness with the prednisone; Took Leflunomide for 4 months but cause spots on skin - DERM consult told her it was LEF and the spots resolved after stopped LEF. --States they did not help. --Surgeries on Wrist and Fingers --Surgery on both wrist for Tendonitis two years ago. Two weeks ago started having pain, xray showed tear in the left and she received an injection and the pain resolved. --back, knee and ankles and toes that cause pain with walking but pain resolves next day 08/19/2023 PCP Visit: This is a 57-year-old female with mild major depression, bipolar disorder and rheumatoid arthritis that comes for her physical exam. Major depression and bipolar disorder are follow by Psychiatry and has been stable with medications. As per patient she has rheumatoid arthritis and does not have a high tension tester because every time she goes to a high tension tester they only speak Vietnamese and does not have an sports medicine coordinator. Last mammogram was over a year ago. Last colonoscopy was 2015. No need for Pap smear due to hysterectomy for benign reasons. [facility] Medical History (Updated 10/16/23 @ 01:14 by OTTO Sorensen-NICO) Bilateral foot pain Bilateral hand pain Screening examination for infectious disease Physical exam Skin lesion GERD (gastroesophageal reflux disease) Mixed hyperlipidemia Obese Bipolar 1 disorder Rheumatoid arthritis Depression with anxiety Hypothyroid Surgical History History of hand surgery H/O esophagogastroduodenoscopy H/O colonoscopy S/P SALOME-BSO History of cholecystectomy History of History of intestinal surgery Family History Mother Pre-diabetes Asthma Arthritis Father Lung cancer Family/Other Mental health disorder Sister Arthritis Maternal Grandmother Arthritis Social History (Updated 10/14/23 @ 13:11 by TAMI Mckeon) Housing: Apartment Alcohol intake: current Alcohol intake frequency: holidays/special occasions only Alcohol type: wine Patient Tobacco Use Status: Former Tobacco user Tobacco use type: Cigarette e-Cigarette/Vaping Use: Never Used Second Hand Smoke Exposure: No service: No Current occupational status: disabled Cognitive needs: No Hearing needs: No Vision needs: Yes Review of Systems Const All systems reviewed & are unremarkable except as noted in HPI and below Physical Exam Vital Signs: Last Vital Signs Pulse 88 10/14/23 13:07 BP 142/84 H 10/14/23 13:07 Pulse Ox 97 10/14/23 13:07 Oxygen Delivery Method Room Air 10/14/23 13:07 BMI result Body Mass Index 29.9 APPEARANCE: Patient in no acute distress EYES no redness, normal EARS:? External ear normal. NOSE/SINUS:? Airflow through both nares, no nasal discharge, no bleeding THROAT:? Oral mucosa moist, no ulcerations NECK:? No thyromegaly or masses, no adenopathy, trachea midline. HEART:? Regular rhythm, S1-S2 heard, no murmurs, rubs or gallops. LUNG:? Clear to percussion and auscultation EXTREMITIES:? No edema, no calf tenderness, normal peripheral pulses. NEURO:? Oriented and alert x3.? No focal weakness.? Reflexes symmetric.? Gait normal. SKIN:? There are no skin lesions evident. No objective signs of Raynaud's phenomenon. JOINT EXAM: Cervical Spine:.? Full range of motion without pain; no tenderness. Thoracic Spine:.? No scoliosis.? No tenderness on palpation. Lumbar Spine:.? Alignment normal.? Full range of motion without pain, no tenderness. Chest Wall:.? No tenderness, swelling, increased warmth or erythema. Hands:.? Normal pain-free range of motion without tenderness, swelling, increased warmth or erythema. 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 Some mild tenderness at left [place]. Wrists:.? Normal pain-free range of motion without tenderness, swelling, increased warmth or erythema. Elbows:. Normal pain-free range of motion without tenderness, swelling, increased warmth or erythema. Shoulders:.?? Full range of motion without pain. No tenderness, weakness, swelling, increased warmth or erythema. Hips:.? Full range of motion without pain. Hip bursa:.? No tenderness. Knees:.?? Normal pain-free range of motion without tenderness, swelling, increased warmth or erythema.? There is no effusion or crepitation Ankles:.? Normal pain-free range of motion without tenderness, swelling, increased warmth or erythema. Feet:.? Normal pain-free range of motion without tenderness, swelling, increased warmth or erythema. Tender points:? No tenderness to digital palpation at the occiput, trapezius, second rib, lateral epicondyle, knees, greater trochanter and gluteal area bilaterally. Assessment & Plan Assessment & Plan (1) Rheumatoid arthritis: Code(s): M06.9 - Rheumatoid arthritis, unspecified Category: Medical Qualifiers: Rheumatoid arthritis location: wrist Rheumatoid factor presence: without rheumatoid factor Laterality: left Qualified Code(s): M06.032 - Rheumatoid arthritis without rheumatoid factor, left wrist (2) Left wrist pain: Code(s): M25.532 - Pain in left wrist Category: Medical (3) Bilateral foot pain: Code(s): M79.671 - Pain in right foot; M79.672 - Pain in left foot Category: Medical (4) Bilateral hand pain: Code(s): M79.641 - Pain in right hand; M79.642 - Pain in left hand Category: Medical Plan Ms. Lauren presents for transfer of care for her possible rheumatoid arthritis. Based on evaluation history this does not clinically present as rheumatoid arthritis. This sounds more likely as chondrocalcinosis and after reviewing the hand x-ray I can see that there are calcifications in the area of the wrist where the swelling occurred. She has also had bouts of tendonitis and reports having surgery to resolve, she denies any chronic recurrence of hand swelling. There is no synovitis seen on PE. She does she gets some mild hand stiffness in the morning when she wakes up, but the stiffness lasts for less than 15 minutes. It also improves as she uses her hands. The patient denies any other joint swelling but reports pain to her bilateral feet. Nonetheless I will do a thorough workup with a rheumatology panel and imaging for hands and feet to evaluate further. At this time I do not see a clinical presentation for RA All the Rheum labs were not done. The ESR/CRP were WNL, MADDISON, ENAs Neg. Patient will do those that were ordered by Dr. Rosales. I spent 15 minutes reviewing history, evaluating patient and documenting. Follow-up in 4 months Coding Level of Care Code Est Pt Level 3 (24363) Diagnoses Rheumatoid arthritis involving left wrist with negative rheumatoid factor M06.032 Rheumatoid arthritis location: wrist Rheumatoid factor presence: without rheumatoid factor Laterality: left Left wrist pain M25.532 Bilateral foot pain M79.671; M79.672 Bilateral hand pain M79.641; M79.642
[2023-10-14 13:07] VITALS: BP 142/84; PULSE 88; O2SAT 97; BMI 29.9
== END 2023-10-14 14:03 | disposition home or self-care (01) ==
PROVIDERS: PCP Internal Medicine; Visit Provider Nurse Practitioner Family
DX: M06.032 Rheumatoid arthritis without rheumatoid factor, left wrist (principal); M25.532 Pain in left wrist; M79.671 Pain in right foot; M79.672 Pain in left foot; M79.641 Pain in right hand; M79.642 Pain in left hand
CPT/HCPCS: 99213

== ENCOUNTER → 2023-10-14 13:02 | Outpatient (BNVA) | payer OTHER, SELFPAY | PROVIDERS: PCP Internal Medicine; Visit Provider Nurse Practitioner Family | DX: M25.532 Pain in left wrist (principal); M79.671 Pain in right foot; M79.672 Pain in left foot; M79.642 Pain in left hand; M79.641 Pain in right hand | CPT/HCPCS: 99212 ==

== ENCOUNTER 2023-11-11 08:21 | Outpatient (REF) | payer OTHER, SELFPAY ==
[2023-11-11 09:21] LABS: Rheumatoid Factor < 13.0 IU/mL (<15.0)
[2023-11-11 09:22] LABS: Alanine Aminotransferase 22 U/L (0-31); Albumin Level 4.1 g/dL (3.5-5.0); Alkaline Phosphatase 93 U/L (39-117); Anion Gap 11 (12-20); Aspartate Amino Transferase 22 U/L (5-31); Bilirubin Total 0.2 mg/dL (0.0-1.0); Blood Urea Nitrogen 21 mg/dL (9-16); Calcium 9.6 mg/dL (8.4-10.2); Carbon Dioxide 27 mmol/L (22-29); Chloride 107 mmol/L (96-108); Cholesterol 216 mg/dL (<200); Estimated Glomerular Filt Rate > 60; Glucose Fasting 98 mg/dL (60-99); HDL Cholesterol 56 mg/dL (>40); LDL Cholesterol Calculated 143 mg/dL (<100); Potassium 3.7 mmol/L (3.3-5.1); Sodium 141 mmol/L (135-145); Total Protein 7.4 g/dL (6.5-8.0); Triglycerides 86 mg/dL (<150)
[2023-11-11 09:38] LABS: Thyroid Stimulating Hormone 2.51 uIU/mL (0.32-4.0)
[2023-11-11 09:41] LABS: Erythrocyte Sedimentation Rate 25 MM/HR (0-20)
[2023-11-12 17:08] LABS: CRP High Sensitivity 5.5 mg/L
[2023-11-12 22:48] LABS: Complement C3 147 mg/dL (83-193)
[2023-11-13 15:43] LABS: Cyclic Citrullinated Peptide <16 UNITS
[2023-11-14 22:24] LABS: Anti Nuclear Antibody Screen NEGATIVE (NEGATIVE)
== END 2023-11-11 08:22 | disposition home or self-care (01) ==
LOC: HO.LAB 08:21
PROVIDERS: PCP Internal Medicine; Visit Provider Internal Medicine
DX: Z00.00 Encounter for general adult medical examination without abnormal findings (principal); M06.9 Rheumatoid arthritis, unspecified; E78.5 Hyperlipidemia, unspecified; E03.9 Hypothyroidism, unspecified
CPT/HCPCS: 36415; 80053; 80061; 84443; 85652; 86038; 86141; 86160; 86200; 86431

== ENCOUNTER 2024-02-24 11:01 | Outpatient (AMB) | payer OTHER, SELFPAY ==
--- NOTE | 2024-02-24 11:03 | MHC.PC.OV ---
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 Required: No Accompanied by: Self / Same As Patient Allergies polyethylene glycol 3350 [From Colyte] Allergy (Severe, Verified 02/24/24 11:19) redness of skin, itch potassium chloride [From Colyte] Allergy (Severe, Verified 02/24/24 11:19) redness of skin, itch sodium bicarbonate [From Colyte] Allergy (Severe, Verified 02/24/24 11:19) redness of skin, itch sodium chloride [From Colyte] Allergy (Severe, Verified 02/24/24 11:19) redness of skin, itch sodium sulfate [From Colyte] Allergy (Severe, Verified 02/24/24 11:19) redness of skin, itch diclofenac Adverse Reaction (Intermediate, Verified 02/24/24 11:19) gastrointestinal bleeding leflunomide Adverse Reaction (Intermediate, Verified 02/24/24 11:19) skin spots Medication List - Last Reconciled 02/24/24 by Kerry Chu MD bupropion HCl XL 300 mg PO DAILY cholecalciferol (vitamin D3) 25 mcg PO DAILY 90 days escitalopram oxalate 20 mg PO DAILY fenofibrate 54 mg PO DAILY 90 days lamotrigine 200 mg PO BEDTIME lamotrigine 50 mg PO QAM levothyroxine 75 mcg PO QAM 90 days linaclotide (Linzess) 145 mcg PO QAM lorazepam 1 mg PO BEDTIME PRN omeprazole 20 mg PO DAILY 90 days quetiapine 50 mg PO BEDTIME quetiapine 100 mg PO BEDTIME rosuvastatin 20 mg PO DAILY 90 days sennosides (senna) 34.4 mg (4 x 8.6 mg) PO BEDTIME PRN 90 days sumatriptan succinate 25 mg PO Q2-4H PRN 30 days Tobacco use date assessed: 08/19/23 Dental Screening Dental Screen Date: 08/19/23 HPI HPI Comments History of Present Illness Details This is a 58-year-old female with bipolar disorder, mild major depression, mixed hyperlipidemia, GERD and hypothyroidism that comes today complaining of non quantified fever, nasal congestion and cough that started about 3 days ago. She has sick contacts. Tested negative for COVID-19 and I recommended to tested again tomorrow. I will prescribe amoxicillin. Bipolar disorder mild major depression has been stable with medications and follow by Psychiatry. I will repeat lipid panel in 6 months. Patient was advised to follow a low-cholesterol diet. GERD stable with PPIs. Last TSH was normal and will be repeated in 6 months. Blood pressure borderline normal to elevated today. She had a T spot that resulted borderline. She was born in [place]. She does not have any tuberculosis exposure. I will repeat the T spot and order a chest x-ray. [facility] Medical History (Updated 02/24/24 @ 11:48 by Kerry Chu MD) Bilateral foot pain Bilateral hand pain Screening examination for infectious disease Physical exam Skin lesion GERD (gastroesophageal reflux disease) Mixed hyperlipidemia Obese Bipolar 1 disorder Rheumatoid arthritis Depression with anxiety Hypothyroid Surgical History History of hand surgery H/O esophagogastroduodenoscopy H/O colonoscopy S/P SALOME-BSO History of cholecystectomy History of History of intestinal surgery Family History Mother Pre-diabetes Asthma Arthritis Father Lung cancer Family/Other Mental health disorder Sister Arthritis Maternal Grandmother Arthritis Social History Housing: Apartment Alcohol intake: current Alcohol intake frequency: holidays/special occasions only Alcohol type: wine Patient Tobacco Use Status: Former Tobacco user Tobacco use type: Cigarette e-Cigarette/Vaping Use: Never Used Second Hand Smoke Exposure: No service: No Current occupational status: disabled Cognitive needs: No Hearing needs: No Vision needs: Yes Questionnaire PHQ-9 Over the last 2 weeks, how often have you been bothered by any of the following problems? 1. Little interest or pleasure in doing things: several days 2. Feeling down, depressed, or hopeless: not at all 3. Trouble falling or staying asleep, or sleeping too much: not at all 4. Feeling tired or having little energy: several days 5. Poor appetite or overeating: nearly every day 6. Feeling bad about yourself - or that you are a failure or have let yourself or your family down: not at all 7. Trouble concentrating on things, such as reading the newspaper or watching television: not at all 8. Moving or speaking so slowly that other people could have noticed. Or the opposite - being so fidgety or restless that you have been moving around a lot more than usual: not at all 9. Thoughts that you would be better off or of hurting yourself in some way: not at all Total score: 5 Depression Screening Interpretation: Positive Depression Screening Follow-up: Existing condition, In treatment and Follow-up Visit Requested Depression Screening Done: Yes 88302 - PHQ-9 Billing: Yes Source: Developed by Drs. Stephen Kimbrough, Heidi Veras, Nelson Salvador and colleagues, with an educational natalie from [employer]. Thrive Questionnaire Date Thrive assessed: 08/19/23 Are you currently unemployed and looking for a job?: Yes KRISTOPHER-7 AMB Questionnaire KRISTOPHER-7 Date KRISTOPHER - 7 assessed: 02/24/24 Feeling nervous, anxious, or on edge: 1 = Several days Not being able to stop or control worryin = Not at all Worrying too much about different things: 0 = Not at all Trouble relaxin = Nearly every day Being so restless that it is hard to sit still: 1 = Several days Becoming easily annoyed or irritable: 1 = Several days Feeling afraid as if something awful might happen: 1 = Several days Total KRISTOPHER-7 score (0-4 normal; 5-9 mild; 10-14 moderate; 15-21 severe): 7 Source: Developed by Drs. Stephen Kimbrough, Heidi Veras, Nelson Salvador and colleagues, with an educational natalie from [employer]. KRISTOPHER-7 Assessment Billing KRISTOPHER-7 Assessment Tool: KRISTOPHER-7 Assessment 18430 Review of Systems Const All systems reviewed & are unremarkable except as noted in HPI and below ENT Reports nasal congestion Card Denies chest pain at rest, Denies chest pain with activity, Denies edema, Denies irregular heart rhythm, Denies claudication, Denies dyspnea, Denies dyspnea on exertion, Denies orthopnea, Denies paroxysmal nocturnal dyspnea and Denies slow heart rate Resp Denies cough, Denies dyspnea and Denies dyspnea on exertion GI Denies abdominal pain, Denies change in bowel habits, Denies excessive flatus, Denies nausea and Denies vomiting Denies urinary incontinence, Denies urinary hesitancy and Denies urinary urgency Musc Denies atrophy, Denies deformity and Denies limited range of motion Skin/Breast Denies bleeding lesions, Denies changing lesions and Denies rash Physical exam (Primary Care) Vital Signs: Last Vital Signs BP 146/74 H 02/24/24 11:04 BMI result Body Mass Index 31.3 Tobacco/Smoking Status: Tobacco use Status Tobacco use date assessed 08/19/23 02/24/24 11:12 Patient Tobacco Use Status Former Tobacco user 02/24/24 11:12 Tobacco use type Cigarette 02/24/24 11:12 e-Cigarette/Vaping Use Never Used 02/24/24 11:12 PHQ-9: PHQ-9 Score PHQ-9: Total score 5 02/24/24 11:12 Depression Screening Interpretation: Positive Depression Screening Follow-up: Existing condition, In treatment and Follow-up Visit Requested Thrive Assessment: Date of Thrive Assessment Date Thrive assessed 08/19/23 02/24/24 11:12 Resp Effort & Inspection: normal respiratory effort Auscultation: clear to auscultation bilaterally Cardio Jugular venous distension: no JVD Rate: regular rate Rhythm: regular rhythm Heart sounds: S1 normal heart sound present and S2 normal heart sound present Extrem General: Yes full ROM Assessment and Plan Assessment & Plan (1) Mild major depression: Code(s): F32.0 - Major depressive disorder, single episode, mild Plan: Continue bupropion and escitalopram. Follow-up with psychiatry. (2) GERD (gastroesophageal reflux disease): Code(s): K21.9 - Gastro-esophageal reflux disease without esophagitis Plan: Continue PPIs. (3) Mixed hyperlipidemia: Code(s): E78.2 - Mixed hyperlipidemia Plan: Continue statins and fibrates. Repeat lipid panel in 6 months. Continue low-cholesterol diet. (4) Hypothyroid: Code(s): E03.9 - Hypothyroidism, unspecified Qualifiers: Hypothyroidism type: unspecified Qualified Code(s): E03.9 - Hypothyroidism, unspecified Plan: Continue levothyroxine. Monitor TSH. (5) Bipolar 1 disorder: Code(s): F31.9 - Bipolar disorder, unspecified Plan: Continue Lamictal. Follow-up with psychiatry. (6) URI (upper respiratory infection): Code(s): J06.9 - Acute upper respiratory infection, unspecified Plan: Start amoxicillin. Orders: Orders Lipid Panel 6 Months E78.5 - Hyperlipidemia, unspecified T Spot TB Today Z11.1 - Encounter for screening for respiratory tuberculosis XR chest 2V Today Z22.7 - Latent tuberculosis Comprehensive [place]. Panel Fast 6 Months E78.2 - Mixed hyperlipidemia Thyroid Stimulating Hormone 6 Months E03.9 - Hypothyroidism, unspecified Medications: New amoxicillin 500 mg PO BID 5 days 10 tabs 0RF Coding Level of Care Code Est Pt Level 4 (14072) Complex EM visit Add On G2211 Diagnoses Mild major depression F32.0 GERD (gastroesophageal reflux disease) K21.9 Mixed hyperlipidemia E78.2 Hypothyroidism, unspecified type E03.9 Hypothyroidism type: unspecified Bipolar 1 disorder F31.9 URI (upper respiratory infection) J06.9 Additional Codes KRISTOPHER-7 Assessment Billing - KRISTOPHER-7 Assessment Tool: KRISTOPHER-7 Assessment 77281 ([id number]) Time Spent (min) 23
[2024-02-24 11:04] VITALS: BP 146/74; BMI 31.3
[2024-02-24 11:46] VITALS: BP 140/80
== END 2024-02-24 11:30 | disposition home or self-care (01) ==
PROVIDERS: PCP Internal Medicine; Visit Provider Internal Medicine
DX: F32.0 Major depressive disorder, single episode, mild (principal); K21.9 Gastro-esophageal reflux disease without esophagitis; E78.2 Mixed hyperlipidemia; E03.9 Hypothyroidism, unspecified; F31.9 Bipolar disorder, unspecified; J06.9 Acute upper respiratory infection, unspecified

== ENCOUNTER → 2024-02-24 11:01 | Outpatient (BNVA) | payer OTHER, SELFPAY | PROVIDERS: PCP Internal Medicine; Visit Provider Internal Medicine | DX: F32.0 Major depressive disorder, single episode, mild (principal); K21.9 Gastro-esophageal reflux disease without esophagitis; E78.2 Mixed hyperlipidemia; E03.9 Hypothyroidism, unspecified; J06.9 Acute upper respiratory infection, unspecified | CPT/HCPCS: 96127; 99212 ==

== ENCOUNTER 2024-03-09 10:10 | Outpatient (REF) | payer OTHER, SELFPAY ==
--- NOTE | ~2024-03-09 | XR_ITS ---
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 COMPARISON: None available. TECHNIQUE: 2 views of the chest were obtained. FINDINGS: No significant abnormality is noted involving the heart, lungs, mediastinum, bony thorax or soft tissues. XR/XR chest 2V IMPRESSION: Unremarkable examination. Electronically signed by: Nena Chua MD 05/19/2024 10:56 AM [facility] [place]
== END 2024-03-09 10:11 | disposition home or self-care (01) ==
LOC: HO.XRAY 10:10
PROVIDERS: PCP Internal Medicine; Referring Provider Internal Medicine; Visit Provider Nurse Practitioner
DX: E03.9 Hypothyroidism, unspecified (principal); Z22.7 Latent tuberculosis; K59.04 Chronic idiopathic constipation; K21.9 Gastro-esophageal reflux disease without esophagitis
CPT/HCPCS: 36415; 71046; 84443; 99212

== ENCOUNTER 2024-03-09 10:10 | Outpatient (AMB) | payer OTHER, SELFPAY ==
[2024-03-09 10:12] VITALS: BP 139/89; PULSE 87; BMI 31.5
--- NOTE | 2024-03-09 10:12 | A.OFFVIS_ITS ---
Vital Signs 03/09/24 10:12 Height 4 ft 11 in Weight 156 lb 1.396 oz BMI 31.5 BP 139/89 Blood Pressure Location Lt brachial Position Sitting Pulse 87 Intake Visit Reasons: 6 months follow up Intake Note: Patient in office today in 6 months follow up of constipation. CC: Patient report that she is sometimes up to 2 weeks without a BM but regularly she has a BM once a week. She states that she takes the Linzess once a day and x5 senna at bedtime. Per patient when she is very constipated she gets nausea and migraines. 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 Allergies polyethylene glycol 3350 [From Colyte] Allergy (Severe, Verified 03/09/24 10:20) redness of skin, itch potassium chloride [From Colyte] Allergy (Severe, Verified 03/09/24 10:20) redness of skin, itch sodium bicarbonate [From Colyte] Allergy (Severe, Verified 03/09/24 10:20) redness of skin, itch sodium chloride [From Colyte] Allergy (Severe, Verified 03/09/24 10:20) redness of skin, itch sodium sulfate [From Colyte] Allergy (Severe, Verified 03/09/24 10:20) redness of skin, itch diclofenac Adverse Reaction (Intermediate, Verified 03/09/24 10:20) gastrointestinal bleeding leflunomide Adverse Reaction (Intermediate, Verified 03/09/24 10:20) skin spots HPI HPI 6 months follow up: Details: AAssessment & Plan (1) Chronic idiopathic constipation: Code(s): K59.04 - Chronic idiopathic constipation (2) GERD (gastroesophageal reflux disease): Code(s): K21.9 - Gastro-esophageal reflux disease without esophagitis Plan [place] #declines She is now satisfied with the Linzess 145mcg with the senna - the 290 does was too high. She continues on omeprazole 20mg a day with good control. ROV 6 mos. TODAY'S VISIT [place] #Danyell LIve Lately despite being adherent to her Linzess 145 micro g and 4 senna a day she is having trouble moving her bowels. In the past Linzess 290 was too strong for her and she also does poorly with Dulcolax in terms of fecal incontinence. I suggest we do a trial of lactulose and she can use this either daily or titrate it to when she is having more troubles. She can not identify any new medications, severe diet changes, or illness preceding the change in her bowel function. She does have hypothyroid so I think checking her thyroid would be prudent as it seemed that her TSH was trending up somewhat in November. She is agreeable to this. Her omeprazole 20 grown mg daily with good control of her GERD. Return office visit in 6 weeks to evaluate [facility] Medical History Bilateral foot pain Bilateral hand pain Screening examination for infectious disease Physical exam Skin lesion GERD (gastroesophageal reflux disease) Mixed hyperlipidemia Obese Bipolar 1 disorder Rheumatoid arthritis Depression with anxiety Hypothyroid Surgical History History of hand surgery H/O esophagogastroduodenoscopy H/O colonoscopy S/P SALOME-BSO History of cholecystectomy History of History of intestinal surgery Family History Mother Pre-diabetes Asthma Arthritis Father Lung cancer Family/Other Mental health disorder Sister Arthritis Maternal Grandmother Arthritis Social History Housing: Apartment Alcohol intake: current Alcohol intake frequency: holidays/special occasions only Alcohol type: wine Patient Tobacco Use Status: Former Tobacco user Tobacco use type: Cigarette e-Cigarette/Vaping Use: Never Used Second Hand Smoke Exposure: No service: No Current occupational status: disabled Cognitive needs: No Hearing needs: No Vision needs: Yes Review of Systems Const Denies fatigue, Denies fever(s), Denies night sweats, Denies poor appetite and Denies weight loss Eyes Details: glasses Reports requires corrective lenses ENT Reports Normal hearing present, Denies dental pain, Denies dysphagia, Denies hearing loss, Denies mouth pain, Denies odynophagia, Denies throat swelling, Denies tongue swelling and Reports other (Dentition adequate) Card Reports no additional complaints Resp Reports no additional complaints GI Details: Denies abdominal pain, Denies melena, Reports bloating, Denies hematochezia, Reports constipation, Denies GI cramping, Denies dysphagia, Denies excessive flatus, Denies early satiety, Reports heartburn, Denies diarrhea, Denies nausea, Denies odynophagia, Denies vomiting and Denies hematemesis Skin/Breast Denies pruritus, Denies lesions, Denies rash and Denies jaundice Neuro Reports Normal hearing present and Denies Abnormal speech present Endo Denies fatigue Aller/Immun Denies throat swelling and Denies tongue swelling Physical Exam Vital Signs: Last Vital Signs Pulse 87 03/09/24 10:12 BP 139/89 03/09/24 10:12 BMI result Body Mass Index 31.5 Const General: cooperative, no acute distress, well developed and well groomed Nutritional Appearance: well nourished and obese Orientation/consciousness: oriented to person, oriented to place and oriented to time Limitations: language barrier HEENT Head: Yes normocephalic and Yes atraumatic Eyes General: appearance normal, both eyes and all related structures Pupils: Equal, round and reactive pupils present Neck Neck: Yes normal visual inspection and Yes no lymphadenopathy Thyroid: Thyroid normal Resp Effort & Inspection: normal respiratory effort and able to speak in complete sentences Auscultation: clear to auscultation bilaterally Cardio Rate: regular rate Rhythm: regular rhythm Heart sounds: Normal, physiologic split S2 sound present Peripheral pulses: radial pulses present and posterior tibial pulses present GI Inspection: No distended, No Abdominal panniculus present and Yes obesity Palpation (GI): Soft to palpation, nontender, no guarding, not rigid and No hepatosplenomegaly present Percussion: Yes normal to percussion Auscultation: normal bowel sounds Rectal Exam - Female: deferred Skin General skin exam: no rashes or lesions noted, turgor normal, skin not dry, no jaundice, No spider nevi and no striae Rashes: no rashes Nails: normal Neuro General: oriented to person, oriented to place and oriented to time Cranial nerves: Yes Equal, round and reactive pupils present and Yes Normal hearing present Speech: No Abnormal speech present Extrem General: Yes normal to inspection, No clubbing, No cyanosis and No edema Psych Appearance: grossly normal and well kempt Mental Status: mental status grossly normal Speech and movement: Normal speech and movement present Affect: normal affect Attitude: cooperative Thought process: Normal thought process present and not confabulating Thought content: Normal thought content present Insight: Fair insight present (Psych) and Limited insight present (Psych) Judgement: Fair judgement present (Psych) and Limited judgement present (Psych) Assessment & Plan Assessment & Plan (1) GERD (gastroesophageal reflux disease): Code(s): K21.9 - Gastro-esophageal reflux disease without esophagitis Category: Medical (2) Chronic idiopathic constipation: Code(s): K59.04 - Chronic idiopathic constipation Category: Medical (3) Hypothyroid: Code(s): E03.9 - Hypothyroidism, unspecified Category: Medical Qualifiers: Hypothyroidism type: unspecified Qualified Code(s): E03.9 - Hypothyroidism, unspecified Plan Madeleine Quiñones LIve Lately despite being adherent to her Linzess 145 micro g and 4 senna a day she is having trouble moving her bowels. In the past Linzess 290 was too strong for her and she also does poorly with Dulcolax in terms of fecal incontinence. I suggest we do a trial of lactulose and she can use this either daily or titrate it to when she is having more troubles. She can not identify any new medications, severe diet changes, or illness preceding the change in her bowel function. She does have hypothyroid so I think checking her thyroid would be prudent as it seemed that her TSH was trending up somewhat in November. She is agreeable to this. Her omeprazole 20 grown mg daily with good control of her GERD. Return office visit in 6 weeks to evaluate Orders: Orders TSH reflex Free T4 Today E03.9 - Hypothyroidism, unspecified Medications: New lactulose 20 grams (30 mL) PO BID 600 mL 6RF K21.9 - Gastro-esophageal reflux disease without esophagitis, K59.04 - Chronic idiopathic constipation Refilled linaclotide (Linzess) 145 mcg PO QAM 30 caps 6RF K59.04 - Chronic idiopathic constipation sennosides (senna) 34.4 mg (4 x 8.6 mg) PO BEDTIME 90 days PRN 360 tabs 3RF constipation Coding Level of Care Code Est Pt Level 3 (85980) Diagnoses GERD (gastroesophageal reflux disease) K21.9 Chronic idiopathic constipation K59.04 Hypothyroidism, unspecified type E03.9 Hypothyroidism type: unspecified
== END 2024-03-09 10:41 | disposition home or self-care (01) ==
PROVIDERS: PCP Internal Medicine; Visit Provider Nurse Practitioner
DX: K21.9 Gastro-esophageal reflux disease without esophagitis (principal); K59.04 Chronic idiopathic constipation; E03.9 Hypothyroidism, unspecified
CPT/HCPCS: 99213

== ENCOUNTER 2024-03-30 10:29 | Outpatient (AMB) | payer OTHER, SELFPAY ==
--- NOTE | 2024-03-30 10:47 | MHC.OFFVIS ---
Vital Signs 03/30/24 10:48 Height 4 ft 11 in Weight 159 lb BMI 32.1 BP 132/69 Blood Pressure Location Lt brachial Position Sitting Pulse 92 Pulse Source Pulse Oximeter Pulse Oximetry (%) 97 Oxygen Delivery Method Room Air Intake Visit Reasons: Poss Psuedogout. Intake Note: Patient presents today for symptoms of pain all over her body. She was last seen in the office on 10/14/23 by Kimberly Mendoza. 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 Cement Truck Loader Name: Sunni Allergies polyethylene glycol 3350 [From Colyte] Allergy (Severe, Verified 03/30/24 10:54) redness of skin, itch potassium chloride [From Colyte] Allergy (Severe, Verified 03/30/24 10:54) redness of skin, itch sodium bicarbonate [From Colyte] Allergy (Severe, Verified 03/30/24 10:54) redness of skin, itch sodium chloride [From Colyte] Allergy (Severe, Verified 03/30/24 10:54) redness of skin, itch sodium sulfate [From Colyte] Allergy (Severe, Verified 03/30/24 10:54) redness of skin, itch polyethylene glycol [From Colyte] Allergy (Mild, Verified 03/30/24 10:56) rash all over body sodium [From Colyte] Allergy (Mild, Verified 03/30/24 10:56) rash all over body diclofenac Adverse Reaction (Intermediate, Verified 03/30/24 10:54) gastrointestinal bleeding leflunomide Adverse Reaction (Intermediate, Verified 03/30/24 10:54) skin spots Medication List - Last Reconciled 03/30/24 by Eugenie Rodriguez MD bupropion HCl XL 300 mg PO DAILY cholecalciferol (vitamin D3) 25 mcg PO DAILY 90 days escitalopram oxalate 20 mg PO DAILY fenofibrate 54 mg PO DAILY 90 days lactulose 20 grams (30 mL) PO BID lamotrigine 200 mg PO BEDTIME lamotrigine 50 mg PO QAM levothyroxine 75 mcg PO QAM 90 days linaclotide (Linzess) 145 mcg PO QAM lorazepam 1 mg PO BEDTIME PRN omeprazole 20 mg PO DAILY 90 days quetiapine 100 mg PO BEDTIME rosuvastatin 20 mg PO DAILY 90 days sennosides (senna) 34.4 mg (4 x 8.6 mg) PO BEDTIME PRN 90 days sumatriptan succinate 25 mg PO Q2-4H PRN 30 days HPI Comments Details: Patient is a 58-year-old female with hypothyroidism, hyperlipidemia and anxiety/depression who presents for follow up of joint pain. Interval History: Patient last seen 10/14/2023. With Kimberly Mendoza. At that time there was concern for possible CPPD. There was low suspicion for rheumatoid arthritis. And no DMARDs were started. X-rays were done and labs were done as well. Today patient complains of spine pain from her neck all the way down to her sacrum. She also complains of bilateral knee pain. And bilateral wrist pain. She states that her knee pain is worse at night after she has done a lot of work. She currently takes care of her 3-year-old granddaughter. She also notes pain to her bilateral wrists the right more than the left. (Patient is right-handed). She denies any history of acute monoarticular arthritis involving the wrists, knees or the feet/ankles. She does note some morning stiffness but states that this lasts less than 10 minutes. Rheumatologic History: Patient initially referred to us for polyarthralgias. The patient came with a diagnosis of rheumatoid arthritis from an outside concrete block layer. She states that she had been placed on steroids and leflunomide. The steroids made her face swell and the leflunomide caused a rash. And both were stopped however for the short time that she was on the steroid she did not have any significant improvement in her pain. There was concern that she could potentially have CPPD based on some calcifications noted on a wrist x-ray however there was no calcifications noted in the [facility] and patient denied a history of acute monoarticular arthritis involving the wrists, knees, ankles or feet. She was ultimately diagnosed with osteoarthritis and managed conservatively Current Rheumatology Medication(s): [facility] Medical History (Updated 03/30/24 @ 11:55 by Eugenie Rodriguez MD) Osteoarthritis Bilateral foot pain Bilateral hand pain Screening examination for infectious disease Physical exam Skin lesion GERD (gastroesophageal reflux disease) Mixed hyperlipidemia Obese Bipolar 1 disorder Depression with anxiety Hypothyroid Surgical History History of hand surgery H/O esophagogastroduodenoscopy H/O colonoscopy S/P SALOME-BSO History of cholecystectomy History of History of intestinal surgery Family History Mother Pre-diabetes Asthma Arthritis Father Lung cancer Family/Other Mental health disorder Sister Arthritis Maternal Grandmother Arthritis Social History Housing: Apartment Alcohol intake: current Alcohol intake frequency: holidays/special occasions only Alcohol type: wine Patient Tobacco Use Status: Former Tobacco user Tobacco use type: Cigarette e-Cigarette/Vaping Use: Never Used Second Hand Smoke Exposure: No service: No Current occupational status: disabled Cognitive needs: No Hearing needs: No Vision needs: Yes Review of Systems Const Details: Review of Systems Constitutional: Denies fever, chills, weight loss ENT: Denies vision changes, eye pain or eye redness, dental caries, dry mouth GI: Denies nausea, vomiting, diarrhea, abdominal pain, change in BM Pulm: Denies SOB, COX, hemoptysis, wheezing Cards: Denies chest pain, palpitations Skin: Denies Raynaud's, rash, nail changes, photosensitivity, STONE ENGRAVER: Denies headaches, weakness, paresthesias, recurrent falls MSK: as per HPI All other systems reviewed and are unremarkable except noted above Physical Exam Vital Signs: Last Vital Signs Pulse 92 03/30/24 10:48 BP 132/69 03/30/24 10:48 Pulse Ox 97 03/30/24 10:48 Oxygen Delivery Method Room Air 03/30/24 10:48 BMI result Body Mass Index 32.1 Physical Examination Patient well appearing and in no apparent painful distress Able to rise from chair without support. ?Gait normal. Constitutional Mucous membranes pink and moist patient alert and cooperative HEENT Conjunctiva and sclera clear. ?Pupils equal round and reactive to light. ?No lymphadenopathy. ?Normal dentition. Respiratory System Normal respiratory effort and able to speak in complete sentences. ?Clear to auscultation bilaterally. ?No crackles, rales, rhonchi, wheezes heard. Cardiac System Regular rate and rhythm. ?S1 and S2 heard no murmurs. ?Radial pulses intact bilaterally MSK Hands:.??Normal pain-free range of motion without tenderness, swelling, increased warmth or erythema. Able to make a full fist and has a good co founder & ceo strength. Heberden's nodes noted. Wrists: Normal pain-free range of motion without tenderness, swelling, increased warmth or erythema. Mild tenderness to palpation of the wrist joint. Elbows: Full range of motion without pain. No tenderness, weakness, swelling, increased warmth or erythema. Shoulders: Full range of motion without pain. No tenderness, weakness, swelling, increased warmth or erythema. Hips: Full range of motion without pain. Hip bursa:.??No tenderness. Knees:.???Normal pain-free range of motion without tenderness, swelling, increased warmth or erythema.? Crepitations noted bilaterally. Ankles:.??Normal pain-free range of motion without tenderness, swelling, increased warmth or erythema. Feet:.??Normal pain-free range of motion without tenderness, swelling, increased warmth or erythema. Tender points:??No tenderness to digital palpation at the occiput, trapezius, second rib, lateral epicondyle, knees, greater trochanter bilaterally, and left gluteal. Office Procedures Joint Injection/Aspiration Joint Injection/Aspiration Details: Procedure was explained to the patient and consent was obtained. ? The area of interest was identified and confirmed with patient. ?This was subsequently cleaned with chlorhexidine x3. ? The area was then anesthetized using ethyl chloride spray. 40 mg Kenalog with 1 cc 1% lidocaine was injected without issue. ?Minimal to no bleeding. ?Patient tolerated procedure. Primary Site: right knee Prep: site was prepped using aseptic technique and ethochloride spray was applied Injected: 40 mg of, Kenalog, with 1 mL of and 1% plain lidocaine Approach Used: medial parapatellar Coding 01645 - Large joint Procedure code (CPT) selection complete Joint Injection/Aspiration Joint Injection/Aspiration Details: Procedure was explained to the patient and consent was obtained. ? The area of interest was identified and confirmed with patient. ?This was subsequently cleaned with chlorhexidine x3. ? The area was then anesthetized using ethyl chloride spray. 40 mg Kenalog with 1 cc 1% lidocaine was injected without issue. ?Minimal to no bleeding. ?Patient tolerated procedure. Primary Site: left knee Prep: site was prepped using aseptic technique and ethochloride spray was applied Injected: 40 mg of, Kenalog, with 1 mL of and 1% plain lidocaine Approach Used: medial parapatellar Procedure: The patient tolerated the procedure well Coding 70369 - Large joint Procedure code (CPT) selection complete Results Reviewed Results Reviewed: Laboratory Tests 09/23/23 11/11/23 14:06 08:35 ESR 25 H Sodium 141 Potassium 3.7 Chloride 107 Carbon Dioxide 27 BUN 21 H Creatinine 0.79 AST 22 ALT 22 Alkaline Phosphatase 93 C-Reactive Protein 0.21 Rheumatoid Factor < 13.0 Cycl Citrul Peptide IgG <16 MADDISON Screen NEGATIVE XR Bilateral Hands 09/23/23 FINDINGS: The bones and soft tissues are normal. No fracture. Alignment is anatomic. Joint spaces are maintained. No erosions or soft tissue calcifications. XR Bilateral Foot 09/23/23 FINDINGS: The bones and soft tissues are normal. No fracture. Alignment is anatomic. Joint spaces are maintained. XR Left Wrist 05/23/22 FINDINGS: No acute fracture or dislocation is evident. Joint spaces are maintained. There is mild spurring about the 1st carpometacarpal joint. There is some mild spurring about the triscaphe joint. There is a sclerotic region within the neck of the scaphoid which may be related to bone island or healed injury. There appears be soft tissue calcification versus artifact about the radial aspect of the distal right radius. Assessment & Plan Assessment & Plan (1) Osteoarthritis: Code(s): M19.90 - Unspecified osteoarthritis, unspecified site Category: Medical Qualifiers: Osteoarthritis location: multiple joints Osteoarthritis type: primary Qualified Code(s): M15.0 - Primary generalized (osteo)arthritis Plan: #OA involving knees and spine Patient's history and serologies including negative RF and CCP as well as normal ESR lead me to believe that she does not have a diagnosis of rheumatoid arthritis. This is compounded by the fact that she was previously on prednisone and that did not help her pains. I do believe that she has osteoarthritis as evidenced by imaging showing degenerative changes in her spine as well as degenerative changes in her hands. There was some concern of this being CPPD but I do not see any chondrocalcinosis in the [facility]. And she does not have a history of recurrent monoarticular arthritis involving the wrists, knees, ankles or feet. Again I think this is osteoarthritis. I gave her bilateral knee injections today and started her on gabapentin 100 mg at night. Also gave her a list of stretches for her to do in the morning and in the evening for her back. I had a long discussion with patient stating that I do not believe that at this time she has a diagnosis of rheumatoid arthritis and that her diagnosis is osteoarthritis. Plan I spent 30 minutes reviewing the record and labs, seeing the patient, discussing the treatment plan and documenting in the medical record Orders: Orders AMB Joint Injection/Aspiration Today M19.90 - Unspecified osteoarthritis, unspecified site AMB Joint Injection/Aspiration Today M19.90 - Unspecified osteoarthritis, unspecified site Medications: New gabapentin 100 mg PO BEDTIME 90 days 90 caps 0RF M19.90 - Unspecified osteoarthritis, unspecified site Coding Level of Care Code Est Pt Level 4 (59246) Diagnoses Primary osteoarthritis involving multiple joints M15.0 Osteoarthritis location: multiple joints Osteoarthritis type: primary CPT Codes Coding - 86832 Large joint: 03721 - Large joint ([id number]) Coding - 66718 Large joint: 51934 - Large joint ([id number])
[2024-03-30 10:48] VITALS: BP 132/69; PULSE 92; O2SAT 97; BMI 32.1
== END 2024-03-30 11:49 | disposition home or self-care (01) ==
PROVIDERS: PCP Internal Medicine; Visit Provider Student in an Organized Health Care Education/Training Program
DX: M15.0 Primary generalized (osteo)arthritis (principal); M17.0 Bilateral primary osteoarthritis of knee
CPT/HCPCS: 20610; 99214

== ENCOUNTER → 2024-03-30 10:29 | Outpatient (BNVA) | payer OTHER, SELFPAY | PROVIDERS: PCP Internal Medicine; Visit Provider Student in an Organized Health Care Education/Training Program | DX: M15.0 Primary generalized (osteo)arthritis (principal) | CPT/HCPCS: 20610; 99212 ==

== ENCOUNTER 2024-09-23 16:13 | Outpatient (AMB) | payer OTHER, SELFPAY ==
--- NOTE | 2024-09-23 16:15 | A.OFFVIS_ITS ---
Vital Signs 09/23/24 16:20 Height 4 ft 11 in Weight 158 lb 11.725 oz BMI 32.1 BP 161/79 H Blood Pressure Location Lt brachial Position Sitting Pulse 93 Intake Visit Reasons: Follow up [facility]IC Intake Note: Gayle presents in the office as a follow up for CIC. CC: States that her constipation is good and she feels okay! 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 Allergies polyethylene glycol 3350 [From Colyte] Allergy (Severe, Verified 09/23/24 16:20) redness of skin, itch potassium chloride [From Colyte] Allergy (Severe, Verified 09/23/24 16:20) redness of skin, itch sodium bicarbonate [From Colyte] Allergy (Severe, Verified 09/23/24 16:20) redness of skin, itch sodium chloride [From Colyte] Allergy (Severe, Verified 09/23/24 16:20) redness of skin, itch sodium sulfate [From Colyte] Allergy (Severe, Verified 09/23/24 16:20) redness of skin, itch polyethylene glycol [From Colyte] Allergy (Mild, Verified 09/23/24 16:20) rash all over body sodium [From Colyte] Allergy (Mild, Verified 09/23/24 16:20) rash all over body diclofenac Adverse Reaction (Intermediate, Verified 09/23/24 16:20) gastrointestinal bleeding leflunomide Adverse Reaction (Intermediate, Verified 09/23/24 16:20) skin spots HPI HPI Follow up CIC: Details: Assessment & Plan (1) GERD (gastroesophageal reflux disease): Code(s): K21.9 - Gastro-esophageal reflux disease without esophagitis Category: Medical (2) Chronic idiopathic constipation: Code(s): K59.04 - Chronic idiopathic constipation Category: Medical (3) Hypothyroid: Code(s): E03.9 - Hypothyroidism, unspecified Category: Medical Qualifiers: Hypothyroidism type: unspecified Qualified Code(s): E03.9 - Hypothyroidism, unspecified Plan Malaysian Ishmael LIve Lately despite being adherent to her Linzess 145 micro g and 4 senna a day she is having trouble moving her bowels. In the past Linzess 290 was too strong for her and she also does poorly with Dulcolax in terms of fecal incontinence. I suggest we do a trial of lactulose and she can use this either daily or titrate it to when she is having more troubles. She can not identify any new medications, severe diet changes, or illness preceding the change in her bowel function. She does have hypothyroid so I think checking her thyroid would be prudent as it seemed that her TSH was trending up somewhat in November. She is agreeable to this. Her omeprazole 20 grown mg daily with good control of her GERD. Return office visit in 6 weeks to evaluate Orders: Orders TSH reflex Free T4 Today E03.9 - Hypothyroidism, unspecified Medications: New lactulose 20 grams (30 mL) PO BID 600 mL 6RF K21.9 - Gastro-esophageal reflux disease without esophagitis, K59.04 - Chronic idiopathic constipation Refilled linaclotide (Linzess) 145 mcg PO QAM 30 caps 6RF K59.04 - Chronic idiopathic constipation sennosides (senna) 34.4 mg (4 x 8.6 mg) PO BEDTIME 90 days PRN 360 tabs 3RF constipation LABS: Laboratory Tests 03/09/24 11:05 TSH 1.40 TODAY'S VISIT Malaysian #[id number] Jeferson She had her last colonoscopy at [facility] and will be due for a repeat screening in 2025. She is doing well on Linzess and senna and has not had to use the lactulose much. ROV 6 mos. PFSH Medical History (Updated 03/30/24 @ 11:55 by Eugenie Rodriguez MD) Osteoarthritis Bilateral foot pain Bilateral hand pain Screening examination for infectious disease Physical exam Skin lesion GERD (gastroesophageal reflux disease) Mixed hyperlipidemia Obese Bipolar 1 disorder Depression with anxiety Hypothyroid Surgical History History of hand surgery H/O esophagogastroduodenoscopy H/O colonoscopy S/P SALOME-BSO History of cholecystectomy History of History of intestinal surgery Family History Mother Pre-diabetes Asthma Arthritis Father Lung cancer Family/Other Mental health disorder Sister Arthritis Maternal Grandmother Arthritis Social History Housing: Apartment Alcohol intake: current Alcohol intake frequency: holidays/special occasions only Alcohol type: wine Patient Tobacco Use Status: Former Tobacco user Tobacco use type: Cigarette e-Cigarette/Vaping Use: Never Used Second Hand Smoke Exposure: No service: No Current occupational status: disabled Cognitive needs: No Hearing needs: No Vision needs: Yes Review of Systems Const Denies fatigue, Denies fever(s), Denies night sweats, Denies poor appetite and Denies weight loss Eyes Details: glasses Reports requires corrective lenses ENT Reports Normal hearing present, Denies dental pain, Denies dysphagia, Denies hearing loss, Denies mouth pain, Denies odynophagia, Denies throat swelling, Denies tongue swelling and Reports other (Dentition adequate) Card Reports no additional complaints Resp Reports no additional complaints GI Details: Denies abdominal pain, Denies melena, Denies bloating, Denies hematochezia, Reports constipation, Denies GI cramping, Denies dysphagia, Denies excessive flatus, Denies early satiety, Denies heartburn, Denies diarrhea, Denies nausea, Denies odynophagia, Denies vomiting and Denies hematemesis Skin/Breast Denies pruritus, Denies lesions, Denies rash and Denies jaundice Neuro Reports Normal hearing present and Denies Abnormal speech present Endo Denies fatigue Aller/Immun Denies throat swelling and Denies tongue swelling Physical Exam Vital Signs: Last Vital Signs Pulse 93 09/23/24 16:20 BP 161/79 H 09/23/24 16:20 BMI result Body Mass Index 32.1 Const General: cooperative, no acute distress, well developed and well groomed Nutritional Appearance: well nourished and obese Orientation/consciousness: oriented to person, oriented to place and oriented to time Limitations: language barrier HEENT Head: Yes normocephalic and Yes atraumatic Eyes General: appearance normal, both eyes and all related structures Pupils: Equal, round and reactive pupils present Neck Neck: Yes normal visual inspection and Yes no lymphadenopathy Thyroid: Thyroid normal Resp Effort & Inspection: normal respiratory effort and able to speak in complete sentences Auscultation: clear to auscultation bilaterally Cardio Rate: regular rate Rhythm: regular rhythm Heart sounds: Normal, physiologic split S2 sound present Peripheral pulses: radial pulses present and posterior tibial pulses present GI Inspection: No distended, No Abdominal panniculus present and Yes obesity Palpation (GI): Soft to palpation, nontender, no guarding, not rigid and No hepatosplenomegaly present Percussion: Yes normal to percussion Auscultation: normal bowel sounds Rectal Exam - Female: deferred Skin General skin exam: no rashes or lesions noted, turgor normal, skin not dry, no jaundice, No spider nevi and no striae Rashes: no rashes Nails: normal Neuro General: oriented to person, oriented to place and oriented to time Cranial nerves: Yes Equal, round and reactive pupils present and Yes Normal hearing present Speech: No Abnormal speech present Extrem General: Yes normal to inspection, No clubbing, No cyanosis and No edema Psych Appearance: grossly normal and well kempt Mental Status: mental status grossly normal Speech and movement: Normal speech and movement present Affect: normal affect Attitude: cooperative Thought process: Normal thought process present and not confabulating Thought content: Normal thought content present Insight: Fair insight present (Psych) Judgement: Fair judgement present (Psych) Results Reviewed Results Reviewed: Laboratory Tests 03/09/24 11:05 TSH 1.40 Assessment & Plan Assessment & Plan (1) GERD (gastroesophageal reflux disease): Code(s): K21.9 - Gastro-esophageal reflux disease without esophagitis Category: Medical (2) Chronic idiopathic constipation: Code(s): K59.04 - Chronic idiopathic constipation Category: Medical Plan Malaysian #[id number] Jeferson She had her last colonoscopy at [facility] and will be due for a repeat screening in 2025. She is doing well on Linzess and senna and has not had to use the lactulose much. ROV 6 mos. Medications: Refilled sennosides (senna) 34.4 mg (4 x 8.6 mg) PO BEDTIME PRN 360 tabs 3RF constipation 90 days linaclotide (Linzess) 145 mcg PO QAM 30 caps 6RF K59.04 - Chronic idiopathic constipation Coding Level of Care Code Est Pt Level 3 (64195) Diagnoses GERD (gastroesophageal reflux disease) K21.9 Chronic idiopathic constipation K59.04
[2024-09-23 16:20] VITALS: BP 161/79; PULSE 93; BMI 32.1
== END 2024-09-23 16:30 | disposition home or self-care (01) ==
LOC: HO.HGI 16:13
PROVIDERS: PCP Internal Medicine; Visit Provider Nurse Practitioner
DX: K21.9 Gastro-esophageal reflux disease without esophagitis (principal); K59.04 Chronic idiopathic constipation
CPT/HCPCS: 99213

== ENCOUNTER → 2024-09-23 16:13 | Outpatient (BNVA) | payer OTHER, SELFPAY | PROVIDERS: PCP Internal Medicine; Visit Provider Nurse Practitioner | DX: K59.04 Chronic idiopathic constipation (principal); K21.9 Gastro-esophageal reflux disease without esophagitis | CPT/HCPCS: 99212 ==

== ENCOUNTER 2024-09-29 10:19 | Outpatient (AMB) | payer OTHER, SELFPAY ==
--- NOTE | 2024-09-29 10:22 | A.OFFVIS_ITS ---
Vital Signs 09/29/24 10:26 Height 4 ft 11 in Weight 160 lb 14.999 oz BMI 32.5 BP 134/90 H Blood Pressure Location Lt brachial Position Sitting Pulse 95 Pulse Source Pulse Oximeter Pulse Oximetry (%) 97 Oxygen Delivery Method Room Air Intake Visit Reasons: follow up Intake Note: Patient presents for follow up. 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 Asphalt Machine Operator Language: House Painting Instructor Services: Asphalt Machine Operator Present Asphalt Machine Operator Name: Allyssa [id number] Information Interpreted: non-clinical & clinical Allergies polyethylene glycol 3350 [From Colyte] Allergy (Severe, Verified 09/29/24 10:25) redness of skin, itch potassium chloride [From Colyte] Allergy (Severe, Verified 09/29/24 10:25) redness of skin, itch sodium bicarbonate [From Colyte] Allergy (Severe, Verified 09/29/24 10:25) redness of skin, itch sodium chloride [From Colyte] Allergy (Severe, Verified 09/29/24 10:25) redness of skin, itch sodium sulfate [From Colyte] Allergy (Severe, Verified 09/29/24 10:25) redness of skin, itch polyethylene glycol [From Colyte] Allergy (Mild, Verified 09/29/24 10:25) rash all over body sodium [From Colyte] Allergy (Mild, Verified 09/29/24 10:25) rash all over body diclofenac Adverse Reaction (Intermediate, Verified 09/29/24 10:25) gastrointestinal bleeding leflunomide Adverse Reaction (Intermediate, Verified 09/29/24 10:25) skin spots Medication List - Last Reconciled 09/29/24 by Eugenie Rodriguez MD bupropion HCl XL 300 mg PO DAILY cholecalciferol (vitamin D3) 25 mcg PO DAILY 90 days escitalopram oxalate 20 mg PO DAILY fenofibrate 54 mg PO DAILY 90 days gabapentin 100 mg PO BID 90 days lamotrigine 200 mg PO BEDTIME lamotrigine 50 mg PO QAM levothyroxine 75 mcg PO QAM 90 days linaclotide (Linzess) 145 mcg PO QAM lorazepam 1 mg PO BEDTIME PRN omeprazole 20 mg PO DAILY 90 days quetiapine 100 mg PO BEDTIME rosuvastatin 20 mg PO DAILY 90 days sennosides (senna) 34.4 mg (4 x 8.6 mg) PO BEDTIME PRN 90 days sumatriptan succinate 25 mg PO Q2-4H PRN 30 days HPI Comments Details: Patient is a 58-year-old female with hypothyroidism, hyperlipidemia and anxiety/depression who presents for follow up of joint pain. Interval History: Patient last seen 03/30/24 with me. At that time patient complained of spine pain from her neck all the way down to her sacrum, bilateral knee pain, and bilateral wrist pain. Especially after a long day at work. Her signs and symptoms were consistent with polyarticular osteoarthritis especially involving the knees and the spine without any evidence of inflammatory arthritis. She was given bilateral knee injections and started on gabapentin Today, Patient states that the knee injections helped her knee pain Currently taking gabapentin and tolerating the medication without any side ef fects such as dizziness or excessive sleepiness. Giving her 60% improvement in her pain. Rheumatologic History: Patient initially referred to us for polyarthralgias. The patient came with a diagnosis of rheumatoid arthritis from an outside sports editor. She states that she had been placed on steroids and leflunomide. The steroids made her face swell and the leflunomide caused a rash. And both were stopped however for the short time that she was on the steroid she did not have any significant improvement in her pain. There was concern that she could potentially have CPPD based on some calcifications noted on a wrist x-ray however there was no calcifications noted in the [facility] and patient denied a history of acute monoarticular arthritis involving the wrists, knees, ankles or feet. She was ultimately diagnosed with osteoarthritis and managed conservatively Current Rheumatology Medication(s): Gabapentin 100mg nightly PFSH Medical History (Updated 03/30/24 @ 11:55 by Eugenie Rodriguez MD) Osteoarthritis Bilateral foot pain Bilateral hand pain Screening examination for infectious disease Physical exam Skin lesion GERD (gastroesophageal reflux disease) Mixed hyperlipidemia Obese Bipolar 1 disorder Depression with anxiety Hypothyroid Surgical History History of hand surgery H/O esophagogastroduodenoscopy H/O colonoscopy S/P SALOME-BSO History of cholecystectomy History of History of intestinal surgery Family History Mother Pre-diabetes Asthma Arthritis Father Lung cancer Family/Other Mental health disorder Sister Arthritis Maternal Grandmother Arthritis Social History Housing: Apartment Alcohol intake: current Alcohol intake frequency: holidays/special occasions only Alcohol type: wine Patient Tobacco Use Status: Former Tobacco user Tobacco use type: Cigarette e-Cigarette/Vaping Use: Never Used Second Hand Smoke Exposure: No service: No Current occupational status: disabled Cognitive needs: No Hearing needs: No Vision needs: Yes Review of Systems Const Details: Review of Systems Constitutional: Denies fever, chills, weight loss ENT: Denies vision changes, eye pain or eye redness, dental caries, dry mouth GI: Denies nausea, vomiting, diarrhea, abdominal pain, change in BM Pulm: Denies SOB, COX, hemoptysis, wheezing Cards: Denies chest pain, palpitations Skin: Denies Raynaud's, rash, nail changes, photosensitivity, INSOLE AND OUTSOLE PREPARER: Denies headaches, weakness, paresthesias, recurrent falls MSK: as per HPI All other systems reviewed and are unremarkable except noted above Physical Exam Vital Signs: Last Vital Signs Pulse 95 09/29/24 10:26 BP 134/90 H 09/29/24 10:26 Pulse Ox 97 09/29/24 10:26 Oxygen Delivery Method Room Air 09/29/24 10:26 BMI result Body Mass Index 32.5 Vital signs reviewed Physical Examination Patient well appearing and in no apparent painful distress Able to rise from chair without support. ?Gait normal. Constitutional Mucous membranes pink and moist patient alert and cooperative HEENT Conjunctiva and sclera clear. ?Pupils equal round and reactive to light. ?No lymphadenopathy. ?Normal dentition. Respiratory System Normal respiratory effort and able to speak in complete sentences. ?Clear to auscultation bilaterally. ?No crackles, rales, rhonchi, wheezes heard. Cardiac System Regular rate and rhythm. ?S1 and S2 heard no murmurs. ?Radial pulses intact bilaterally MSK Hands:.??Normal pain-free range of motion without tenderness, swelling, increased warmth or erythema. 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 Heberden's nodes noted. Wrists: Normal pain-free range of motion without tenderness, swelling, increased warmth or erythema. Mild tenderness to palpation of the wrist joint. Elbows: Full range of motion without pain. No tenderness, weakness, swelling, increased warmth or erythema. Shoulders: Full range of motion without pain. No tenderness, weakness, swelling, increased warmth or erythema. Knees:.???Normal pain-free range of motion without tenderness, swelling, increased warmth or erythema.? Crepitations noted bilaterally. Ankles:.??Normal pain-free range of motion without tenderness, swelling, increased warmth or erythema. Feet:.??Normal pain-free range of motion without tenderness, swelling, increased warmth or erythema. Tender points:??No tenderness to digital palpation at the occiput, trapezius, second rib, lateral epicondyle, knees, greater trochanter bilaterally, and left gluteal. Results Reviewed Results Reviewed: XR Bilateral Hands 09/2023 FINDINGS: The bones and soft tissues are normal. No fracture. Alignment is anatomic. Joint spaces are maintained. No erosions or soft tissue calcifications. IMPRESSION: Normal right and left hand. XR Bilateral Feet 09/2023 FINDINGS: The bones and soft tissues are normal. No fracture. Alignment is anatomic. Joint spaces are maintained. IMPRESSION: Normal right and left foot. Assessment & Plan Assessment & Plan (1) Osteoarthritis: Code(s): M19.90 - Unspecified osteoarthritis, unspecified site Category: Medical Qualifiers: Osteoarthritis location: multiple joints Osteoarthritis type: primary Qualified Code(s): M15.0 - Primary generalized (osteo)arthritis Plan: #OA involving knees and spine Patient's history and serologies including negative RF and CCP as well as normal ESR lead me to believe that she does not have a diagnosis of rheumatoid arthritis. This is compounded by the fact that she was previously on prednisone and that did not help her pains. I do believe that she has osteoarthritis as evidenced by imaging showing degenerative changes in her spine as well as degenerative changes in her hands. There was some concern of this being CPPD but I do not see any chondrocalcinosis in the TF[facility]. And she does not have a history of recurrent monoarticular arthritis involving the wrists, knees, ankles or feet. Again I think this is osteoarthritis. I gave her bilateral knee injections today and started her on gabapentin 100 mg at night. Also gave her a list of stretches for her to do in the morning and in the evening for her back. I had a long discussion with patient stating that I do not believe that at this time she has a diagnosis of rheumatoid arthritis and that her diagnosis is osteoarthritis. Plan - Gabapentin 100mg bid - Steroid injections in the knee as needed, patient declined today - RTC 6 months Plan I spent 20 minutes reviewing the record and labs, seeing the patient, discussing the treatment plan and documenting in the medical record Medications: Changed From gabapentin 100 mg PO BEDTIME 90 days 90 caps 0RF M19.90 - Unspecified osteoarthritis, unspecified site To gabapentin 100 mg PO BID 90 days 180 caps 1RF M19.90 - Unspecified osteoarthritis, unspecified site Coding Level of Care Code Est Pt Level 3 (77376) Diagnoses Primary osteoarthritis involving multiple joints M15.0 Osteoarthritis location: multiple joints Osteoarthritis type: primary
[2024-09-29 10:26] VITALS: BP 134/90; PULSE 95; O2SAT 97; BMI 32.5
== END 2024-09-29 10:46 | disposition home or self-care (01) ==
LOC: HO.RHE 10:20
PROVIDERS: PCP Internal Medicine; Visit Provider Student in an Organized Health Care Education/Training Program
DX: M15.0 Primary generalized (osteo)arthritis (principal)
CPT/HCPCS: 99213

== ENCOUNTER → 2024-09-29 10:19 | Outpatient (BNVA) | payer OTHER, SELFPAY | PROVIDERS: PCP Internal Medicine; Visit Provider Student in an Organized Health Care Education/Training Program | DX: M15.0 Primary generalized (osteo)arthritis (principal) | CPT/HCPCS: 99212 ==

== ENCOUNTER 2024-10-13 14:17 | Outpatient (AMB) | payer OTHER, SELFPAY ==
--- NOTE | 2024-10-13 14:18 | MHC.PC.OV ---
Vital Signs 10/13/24 14:20 Height 4 ft 11 in Weight 158 lb BMI 31.9 BP 132/78 Blood Pressure Location Lt brachial Position Sitting Intake Visit Reasons: Annual exam Intake Note: Patient here for a physical exam Sports Medicine Trainer Required: No Accompanied by: Self / Same As Patient Allergies polyethylene glycol 3350 [From Colyte] Allergy (Severe, Verified 10/13/24 14:38) redness of skin, itch potassium chloride [From Colyte] Allergy (Severe, Verified 10/13/24 14:38) redness of skin, itch sodium bicarbonate [From Colyte] Allergy (Severe, Verified 10/13/24 14:38) redness of skin, itch sodium chloride [From Colyte] Allergy (Severe, Verified 10/13/24 14:38) redness of skin, itch sodium sulfate [From Colyte] Allergy (Severe, Verified 10/13/24 14:38) redness of skin, itch polyethylene glycol [From Colyte] Allergy (Mild, Verified 10/13/24 14:38) rash all over body sodium [From Colyte] Allergy (Mild, Verified 10/13/24 14:38) rash all over body diclofenac Adverse Reaction (Intermediate, Verified 10/13/24 14:38) gastrointestinal bleeding leflunomide Adverse Reaction (Intermediate, Verified 10/13/24 14:38) skin spots Medication List - Last Reconciled 10/13/24 by Kerry Chu MD bupropion HCl XL 300 mg PO DAILY cholecalciferol (vitamin D3) 25 mcg PO DAILY 90 days escitalopram oxalate 20 mg PO DAILY fenofibrate 54 mg PO DAILY 90 days gabapentin 100 mg PO BID 90 days lamotrigine 200 mg PO BEDTIME lamotrigine 50 mg PO QAM levothyroxine 75 mcg PO QAM 90 days linaclotide (Linzess) 145 mcg PO QAM lorazepam 1 mg PO BEDTIME PRN omeprazole 20 mg PO DAILY 90 days quetiapine 100 mg PO BEDTIME rosuvastatin 20 mg PO DAILY 90 days sennosides (senna) 34.4 mg (4 x 8.6 mg) PO BEDTIME PRN 90 days sumatriptan succinate 25 mg PO Q2-4H PRN 30 days Tobacco use date assessed: 10/13/24 Dental Screening Dental Screen Date: 10/13/24 Did you have a dental visit in the last 12 months?: No Did you have a dental problem in the last 6 months where you did not have access to dental care?: No Was dental information given to patient?: Patient has dentist HPI HPI Comments History of Present Illness Details The patient is a 58-year-old female presenting for an annual physical examination and ongoing management of her chronic conditions. Her past medical history is significant for anxiety, depression, hyperlipidemia, hypothyroidism, and osteoarthritis, managed with various medications including bupropion, escitalopram, fenofibrate, gabapentin, and levothyroxine. She experienced gastrointestinal bleeding from Tiklofenopril and dermatological reactions from Leflunomide. Surgically, her history includes a hysterectomy, cholecystectomy, an intestinal anastomosis, and a section. She is a former smoker, with current moderate alcohol intake. Familiar conditions include lung cancer and pre-diabetes. Vaccinations necessary at this age include RSV and Herpes Zoster. The patient acknowledges experiencing chest discomfort and intermittent shortness of breath, requiring further monitoring. - Patient is up-to-date on the tetanus vaccine. - Requires vaccination for RSV and Herpes Zoster (Shingrix), available at the pharmacy. - Last mammogram was in September of the previous year; due for the next screening this year. - Next colonoscopy scheduled for 2025, as the previous one was in 2015. - Routine laboratory work is planned to assess cholesterol and thyroid function. [facility] Medical History Osteoarthritis Bilateral foot pain Bilateral hand pain Screening examination for infectious disease Physical exam Skin lesion GERD (gastroesophageal reflux disease) Mixed hyperlipidemia Obese Bipolar 1 disorder Depression with anxiety Hypothyroid Surgical History History of hand surgery H/O esophagogastroduodenoscopy H/O colonoscopy S/P SALOME-BSO History of cholecystectomy History of History of intestinal surgery Family History Mother Pre-diabetes Asthma Arthritis Father Lung cancer Family/Other Mental health disorder Sister Arthritis Maternal Grandmother Arthritis Social History Housing: Apartment Alcohol intake: current Alcohol intake frequency: holidays/special occasions only Alcohol type: wine Patient Tobacco Use Status: Former Tobacco user Tobacco use type: Cigarette e-Cigarette/Vaping Use: Never Used Second Hand Smoke Exposure: No service: No Current occupational status: disabled Cognitive needs: No Hearing needs: No Vision needs: Yes Questionnaire PHQ-9 Over the last 2 weeks, how often have you been bothered by any of the following problems? 1. Little interest or pleasure in doing things: not at all 2. Feeling down, depressed, or hopeless: not at all 3. Trouble falling or staying asleep, or sleeping too much: not at all 4. Feeling tired or having little energy: not at all 5. Poor appetite or overeating: not at all 6. Feeling bad about yourself - or that you are a failure or have let yourself or your family down: not at all 7. Trouble concentrating on things, such as reading the newspaper or watching television: not at all 8. Moving or speaking so slowly that other people could have noticed. Or the opposite - being so fidgety or restless that you have been moving around a lot more than usual: not at all 9. Thoughts that you would be better off or of hurting yourself in some way: not at all Total score: 0 Depression Screening Interpretation: Negative Depression Screening Done: Yes 48751 - PHQ-9 Billing: Yes Source: Developed by Drs. Stephen Kimbrough, Heidi Veras, Nelson Salvador and colleagues, with an educational natalie from [employer]. Thrive Questionnaire Date Thrive assessed: 10/13/24 I am a: Patient What is your living situation today?: I have a steady place to live Within the past 12 months, did the food you bought not last and you didn't have the money to get more?: Never true Within the past 12 months, did you worry whether your food would run out before you got money to buy more?: Never true Do you have trouble paying for medicines?: No Do you have trouble getting transportation to medical appointments?: No Do you have trouble paying your heating and electricity bill?: No Do you have trouble taking care of your child, family member or friend?: No Do you have trouble with day-to-day activities such as bathing, preparing meals, shopping, managing finances, etc.?: No Are you currently unemployed and looking for a job?: No Are you interested in more education?: No Please select the resources that you would like help with: None Currently or been in a relationship where the following occur: No concerns reported THRIVE Score: 0 AUDIT C Alcohol Use Questionnaire (AUDIT-C) 1. How often do you have a drink containing alcohol?: Never Total Score: 0 Score Reviewed/Action Taken: No KRISTOPHER-7 AMB Questionnaire KRISTOPHER-7 Date KRISTOPHER - 7 assessed: 10/13/24 Feeling nervous, anxious, or on edge: 0 = Not at all Not being able to stop or control worryin = Not at all Worrying too much about different things: 0 = Not at all Trouble relaxin = Not at all Being so restless that it is hard to sit still: 0 = Not at all Becoming easily annoyed or irritable: 0 = Not at all Feeling afraid as if something awful might happen: 0 = Not at all Total KRISTOPHER-7 score (0-4 normal; 5-9 mild; 10-14 moderate; 15-21 severe): 0 Source: Developed by Drs. Stephen Kimbrough, Heidi Veras, Nelson Salvador and colleagues, with an educational natalie from [employer]. KRISTOPHER-7 Assessment Billing KRISTOPHER-7 Assessment Tool: KRISTOPHER-7 Assessment 45312 Review of Systems Const All systems reviewed & are unremarkable except as noted in HPI and below Card Denies chest pain at rest, Denies chest pain with activity, Denies edema, Denies irregular heart rhythm, Denies claudication, Denies dyspnea, Denies dyspnea on exertion, Denies orthopnea, Denies paroxysmal nocturnal dyspnea and Denies slow heart rate Resp Denies cough, Denies dyspnea and Denies dyspnea on exertion GI Denies abdominal pain, Denies change in bowel habits, Denies excessive flatus, Denies nausea and Denies vomiting Skin/Breast Denies bleeding lesions, Denies changing lesions and Denies rash Neuro Denies behavioral changes and Denies lack of coordination Psych Denies behavioral changes Physical exam (Primary Care) Vital Signs: Last Vital Signs BP 132/78 10/13/24 14:20 BMI result Body Mass Index 31.9 Tobacco/Smoking Status: Tobacco use Status Tobacco use date assessed 10/13/24 10/13/24 14:25 Patient Tobacco Use Status Former Tobacco user 10/13/24 14:25 Tobacco use type Cigarette 10/13/24 14:25 e-Cigarette/Vaping Use Never Used 10/13/24 14:25 PHQ-9: PHQ-9 Score PHQ-9: Total score 0 10/13/24 14:25 Depression Screening Interpretation: Negative Thrive Assessment: Date of Thrive Assessment Date Thrive assessed 10/13/24 10/13/24 14:25 Currently or been in a relationship where the following occur: No concerns reported HENMT Head: Yes normal to inspection, Yes normocephalic and Yes atraumatic Ears: external ears normal Eyes General: appearance normal, both eyes and all related structures Eyelids: Yes eyelids normal Conjunctivae: conjunctivae normal Neck Neck: Yes normal visual inspection and Yes supple Resp Effort & Inspection: normal respiratory effort Auscultation: clear to auscultation bilaterally Cardio Jugular venous distension: no JVD Rate: regular rate Rhythm: regular rhythm Heart sounds: S1 normal heart sound present and S2 normal heart sound present GI Inspection: Yes normal to inspection Palpation (GI): Soft to palpation and nontender Auscultation: normal bowel sounds Skin General skin exam: no rashes or lesions noted Neuro General: no focal motor deficits Extrem General: Yes full ROM Psych Appearance: grossly normal Coding Level of Care Code Est Pt Prev Care 40-64y(33878) Diagnoses Physical exam Z00.00 Bipolar 1 disorder F31.9 Mild major depression F32.0 Additional Codes PHQ-9 - 24624 - PHQ-9 Billing: Yes ([id number]) KRISTOPHER-7 Assessment Billing - KRISTOPHER-7 Assessment Tool: KRISTOPHER-7 Assessment 95854 ([id number]) Time Spent (min) 30 Assessment & Plan Assessment & Plan (1) Physical exam: Code(s): Z00.00 - Encounter for general adult medical examination without abnormal findings Category: Medical (2) Bipolar 1 disorder: Code(s): F31.9 - Bipolar disorder, unspecified Category: Medical (3) Mild major depression: Code(s): F32.0 - Major depressive disorder, single episode, mild Category: Medical Plan The patient will continue her current treatment regimen for anxiety, depression, hyperlipidemia, arthritis, and hypothyroidism. We discussed maintaining her current dosages of bupropion and escitalopram to manage her psychiatric symptoms, including anxiety and insomnia, while addressing her cholesterol with fenofibrate and arthritis pain with gabapentin. Regular checks on her thyroid function will ensure levothyroxine efficacy. Preventive measures include obtaining RSV and Herpes Zoster vaccinations and routine mammography for breast cancer screening. Follow-up appointments in traumatology and gastroenterology for her existing musculoskeletal and gastrointestinal conditions have been coordinated. Additionally, continued psychiatric care with her psychiatrist for bipolar disorder management will be maintained. Patient was informed and verbally consented to the use of an ambient scribe for clinic note documentation during this visit. I reviewed the patient's current health status, addressing anxiety, depression, insomnia, hyperlipidemia, and hypothyroidism. We discussed ongoing management through medications like bupropion, escitalopram, fenofibrate, gabapentin, and levothyroxine. I highlighted the importance of maintaining routine screenings and vaccinations, such as RSV and Herpes Zoster, age-appropriate for her. I detailed the need for regular lab work to track cholesterol and thyroid health. We consented to continue her existing psychiatric follow-up for bipolar disorder, and encouragement was given for consistent lifestyle habits, including exercise, with realistic adjustments due to age-related changes. Orders: Orders Vitamin D 25-OH Total Today E55.9 - Vitamin D deficiency, unspecified Lipid Panel Today E78.5 - Hyperlipidemia, unspecified Comprehensive [place]. Panel Fast Today Z00.00 - Encounter for general adult medical examination without abnormal findings Thyroid Stimulating Hormone Today E03.9 - Hypothyroidism, unspecified Patient Instructions: - Continue taking medications as prescribed for anxiety, depression, and insomnia. - Obtain RSV and Herpes Zoster (Shingrix) vaccinations from the pharmacy. - Schedule and complete your routine mammogram screening. - Attend follow-up appointments with traumatology and gastroenterology. - Seek medical attention if experiencing new or worsening symptoms. - Maintain regular exercises within comfortable limits. - Follow up with your psychiatrist for ongoing bipolar disorder management.
[2024-10-13 14:20] VITALS: BP 132/78; BMI 31.9
== END 2024-10-13 14:50 | disposition home or self-care (01) ==
LOC: HO.HMCH 14:17
PROVIDERS: PCP Internal Medicine; Visit Provider Internal Medicine
DX: Z00.00 Encounter for general adult medical examination without abnormal findings (principal); F31.9 Bipolar disorder, unspecified

== ENCOUNTER → 2024-10-13 14:17 | Outpatient (BNVA) | payer OTHER, SELFPAY | PROVIDERS: PCP Internal Medicine; Visit Provider Internal Medicine | DX: Z00.00 Encounter for general adult medical examination without abnormal findings (principal); F41.9 Anxiety disorder, unspecified; E78.5 Hyperlipidemia, unspecified; E03.9 Hypothyroidism, unspecified; F31.9 Bipolar disorder, unspecified; E55.9 Vitamin D deficiency, unspecified | CPT/HCPCS: 96127; 99396 ==

== ENCOUNTER 2024-11-16 08:00 | Outpatient (REF) | payer OTHER, SELFPAY ==
[2024-11-16 09:50] LABS: Alanine Aminotransferase 20 U/L (0-31); Albumin Level 4.4 g/dL (3.5-5.0); Alkaline Phosphatase 72 U/L (39-117); Anion Gap 10 (12-20); Aspartate Amino Transferase 20 U/L (5-31); Bilirubin Total 0.2 mg/dL (0.0-1.0); Blood Urea Nitrogen 17 mg/dL (9-16); Calcium 9.4 mg/dL (8.4-10.2); Carbon Dioxide 28 mmol/L (22-29); Chloride 108 mmol/L (96-108); Cholesterol 147 mg/dL (<200); Estimated Glomerular Filt Rate > 60; Glucose Fasting 93 mg/dL (60-99); HDL Cholesterol 57 mg/dL (>40); LDL Cholesterol Calculated 61 mg/dL (<100); Potassium 3.8 mmol/L (3.3-5.1); Sodium 142 mmol/L (135-145); Total Protein 7.3 g/dL (6.5-8.0); Triglycerides 146 mg/dL (<150)
[2024-11-16 10:11] LABS: Vitamin D 25-OH Total 38.2 ng/mL (>30)
[2024-11-19 02:38] LABS: TS Negative Control Passed; TS Panel A 1; TS Panel B 0; TS Positive Control Passed; TSpotTB Negative (Negative)
== END 2024-11-16 08:01 | disposition home or self-care (01) ==
LOC: HO.LAB 08:00
PROVIDERS: PCP Internal Medicine; Visit Provider Internal Medicine
DX: Z00.00 Encounter for general adult medical examination without abnormal findings (principal); E78.5 Hyperlipidemia, unspecified; E55.9 Vitamin D deficiency, unspecified; Z11.1 Encounter for screening for respiratory tuberculosis; E03.9 Hypothyroidism, unspecified
CPT/HCPCS: 36415; 80053; 80061; 82306; 84443; 86481

== ENCOUNTER 2025-03-22 09:49 | Outpatient (AMB) | payer OTHER, SELFPAY ==
--- NOTE | 2025-03-22 09:51 | A.OFFVIS_ITS ---
Vital Signs 03/22/25 09:52 Height 4 ft 11 in Weight 149 lb 7.574 oz BMI 30.2 BP 123/73 Blood Pressure Location Lt brachial Position Sitting Pulse 84 Intake Visit Reasons: [facility] 6 months f/u Intake Note: CC: Patient reports having constipation and acid reflux. Flash Ranging Crewmember Required: Yes Flash Ranging Crewmember Language: Czech Accompanied by: Self / Same As Patient Allergies polyethylene glycol 3350 (From Colyte) Allergy (Severe, Verified 10/13/24 14:38) redness of skin, itch potassium chloride (From Colyte) Allergy (Severe, Verified 10/13/24 14:38) redness of skin, itch sodium bicarbonate (From Colyte) Allergy (Severe, Verified 10/13/24 14:38) redness of skin, itch sodium chloride (From Colyte) Allergy (Severe, Verified 10/13/24 14:38) redness of skin, itch sodium sulfate (From Colyte) Allergy (Severe, Verified 10/13/24 14:38) redness of skin, itch polyethylene glycol (From Colyte) Allergy (Mild, Verified 10/13/24 14:38) rash all over body sodium (From Colyte) Allergy (Mild, Verified 10/13/24 14:38) rash all over body diclofenac Adverse Reaction (Intermediate, Verified 10/13/24 14:38) gastrointestinal bleeding leflunomide Adverse Reaction (Intermediate, Verified 10/13/24 14:38) skin spots HPI HPI [facility] 6 months f/u: Details: ssessment & Plan (1) GERD (gastroesophageal reflux disease): Code(s): K21.9 - Gastro-esophageal reflux disease without esophagitis Category: Medical (2) Chronic idiopathic constipation: Code(s): K59.04 - Chronic idiopathic constipation Category: Medical Plan Czech #[id number] Jeferson She had her last colonoscopy at [facility] and will be due for a repeat screening in 2025. She is doing well on Linzess and senna and has not had to use the lactulose much. ROV 6 mos. Medications: Refilled sennosides (senna) 34.4 mg (4 x 8.6 mg) PO BEDTIME PRN 360 tabs 3RF constipation 90 days linaclotide (Linzess) 145 mcg PO QAM 30 caps 6RF K59.04 - Chronic idiopathic constipation TODAY'S VISIT Czech # PFSH Medical History (Updated 03/22/25 @ 10:23 by LANG Knutson) Screening examination for infectious disease URI (upper respiratory infection) Osteoarthritis Bilateral foot pain Bilateral hand pain Physical exam Skin lesion GERD (gastroesophageal reflux disease) Mixed hyperlipidemia Obese Bipolar 1 disorder Depression with anxiety Hypothyroid Surgical History (Updated 03/22/25 @ 10:23 by LANG Knutson) S/P marisela-rectal abscess repair, follow-up exam S/P laparoscopic-assisted sigmoidectomy History of hand surgery H/O esophagogastroduodenoscopy H/O colonoscopy S/P SALOME-BSO History of cholecystectomy History of Family History Mother Pre-diabetes Asthma Arthritis Father Lung cancer Family/Other Mental health disorder Sister Arthritis Maternal Grandmother Arthritis Social History Housing: Apartment Alcohol intake: current Alcohol intake frequency: holidays/special occasions only Alcohol type: wine Patient Tobacco Use Status: Former Tobacco user Tobacco use type: Cigarette e-Cigarette/Vaping Use: Never Used Second Hand Smoke Exposure: No service: No Current occupational status: disabled Cognitive needs: No Hearing needs: No Vision needs: Yes Review of Systems Const Denies fatigue, Denies fever(s), Denies night sweats, Denies poor appetite and Denies weight loss Eyes Details: glasses Reports requires corrective lenses ENT Reports Normal hearing present, Denies dental pain, Denies dysphagia, Denies hearing loss, Denies mouth pain, Denies odynophagia, Denies throat swelling, Denies tongue swelling and Reports other (Dentition adequate) Card Reports no additional complaints Resp Reports no additional complaints GI Details: Rectal leakage Denies abdominal pain, Denies melena, Denies bloating, Denies hematochezia, Denies constipation, Denies GI cramping, Denies dysphagia, Denies excessive flatus, Denies early satiety, Reports heartburn, Denies diarrhea, Denies nausea, Denies odynophagia, Denies vomiting and Denies hematemesis Skin/Breast Denies pruritus, Denies lesions, Denies rash and Denies jaundice Neuro Reports Normal hearing present and Denies Abnormal speech present Endo Denies fatigue Aller/Immun Denies throat swelling and Denies tongue swelling Physical Exam Vital Signs: Last Vital Signs Pulse 84 03/22/25 09:52 BP 123/73 03/22/25 09:52 BMI result Body Mass Index 30.2 Const General: cooperative, no acute distress, well developed and well groomed Nutritional Appearance: well nourished and obese Orientation/consciousness: oriented to person, oriented to place and oriented to time Limitations: language barrier and other limitations (Educational) HEENT Head: Yes normocephalic and Yes atraumatic Eyes General: appearance normal, both eyes and all related structures Pupils: Equal, round and reactive pupils present Neck Neck: Yes normal visual inspection and Yes no lymphadenopathy Thyroid: Thyroid normal Resp Effort & Inspection: normal respiratory effort and able to speak in complete sentences Auscultation: clear to auscultation bilaterally Cardio Rate: regular rate Rhythm: regular rhythm Heart sounds: Normal, physiologic split S2 sound present Peripheral pulses: radial pulses present and posterior tibial pulses present GI Inspection: No distended, No Abdominal panniculus present and Yes obesity Palpation (GI): Soft to palpation, nontender, no guarding, not rigid and No hepatosplenomegaly present Percussion: Yes normal to percussion Auscultation: normal bowel sounds Rectal Exam - Female: deferred Skin General skin exam: no rashes or lesions noted, turgor normal, skin not dry, no jaundice, No spider nevi and no striae Rashes: no rashes Nails: normal Neuro General: oriented to person, oriented to place and oriented to time Cranial nerves: Yes Equal, round and reactive pupils present and Yes Normal hearing present Speech: No Abnormal speech present Extrem General: Yes normal to inspection, No clubbing, No cyanosis and No edema Psych Appearance: grossly normal and well kempt Mental Status: mental status grossly normal Speech and movement: Normal speech and movement present Affect: normal affect Attitude: cooperative Thought process: Normal thought process present and not confabulating Thought content: Normal thought content present Insight: Limited insight present (Psych) Judgement: Limited judgement present (Psych) Assessment & Plan Assessment & Plan (1) Chronic idiopathic constipation: Code(s): K59.04 - Chronic idiopathic constipation Category: Medical (2) GERD (gastroesophageal reflux disease): Code(s): K21.9 - Gastro-esophageal reflux disease without esophagitis Category: Medical Plan Czech #Nasima Live She is doing well on omeprazole, Linzess and senna and has not had to use the lactulose much. Tracie can be a bit of a confusing historian, but it seems she stopped the Linzess and instead is utilizing senna 4 tablets daily to control her constipation. With this she continues to have rectal leakage which is not necessarily tied to looser stools, but even happens with solid stools. We have tried many different combinations to see if we can bulk up the stools and keep this from happening but so far we have not succeeded. She has a long history of problems of this nature and says that she had a sigmoid anastomosis and 2 rectal [address] surgeries [address] Sawyer to try to address this without success in the past. Apparently her brother also had to have surgery for rectal laxity. Given this she feels that she is happy with her current situation since she is not willing to undergo something like a balloon expulsion test or any additional surgery. She is thankful that we have at least tried. She will be due for screening colonoscopy next year and since [facility] has not contacted her to schedule it she would rather that we take this up at this facility. We will talk about this at her next appointment. Return office visit in 6 months Medications: Refilled omeprazole 20 mg PO DAILY 90 caps 1RF 90 days K21.9 - Gastro-esophageal reflux disease without esophagitis Coding Level of Care Code Est Pt Level 3 (99296) Diagnoses Chronic idiopathic constipation K59.04 GERD (gastroesophageal reflux disease) K21.9
[2025-03-22 09:52] VITALS: BP 123/73; PULSE 84; BMI 30.2
== END 2025-03-22 10:25 | disposition home or self-care (01) ==
LOC: HO.HGI 09:49
PROVIDERS: PCP Internal Medicine; Visit Provider Nurse Practitioner
DX: K59.04 Chronic idiopathic constipation (principal); K21.9 Gastro-esophageal reflux disease without esophagitis
CPT/HCPCS: 99213

== ENCOUNTER → 2025-03-22 09:49 | Outpatient (BNVA) | payer OTHER, SELFPAY | PROVIDERS: PCP Internal Medicine; Visit Provider Nurse Practitioner | DX: K59.04 Chronic idiopathic constipation (principal); K21.9 Gastro-esophageal reflux disease without esophagitis | CPT/HCPCS: 99212 ==